=== PATIENT | male | born 1990 | race Caucasian/White ===

== ENCOUNTER 2024-10-12 08:58 | Inpatient (IN) | payer OTHER, SELFPAY ==
[2024-10-12] VITALS (26 sets, daily range): BP systolic 171–234; BP diastolic 83–173; PULSE 68–111; RESP 14–24; TEMP 36.3–36.9; O2SAT 87–97; BMI 68.2
--- NOTE | ~2024-10-12 | XR_ITS ---
EXAMINATION: XR CHEST CLINICAL INFORMATION: sob COMPARISON: None available. TECHNIQUE: 2 views of the chest were obtained. FINDINGS: The cardiac, hilar, and mediastinal contours are normal. There is opacity in the right middle lobe distribution. Lungs otherwise appear clear. There is no pneumothorax or pleural effusion. There is no focal osseous or soft tissue abnormality. XR/XR chest 2V IMPRESSION: Right middle lobe pneumonia suspected. Electronically signed by: Yadiel Grey MD 10/12/2024 09:59 AM EDT
--- NOTE | 2024-10-12 09:12 | ECG_ITS ---
Test Reason : sob Blood Pressure : */* mmHG Vent. Rate : 95 BPM Atrial Rate : 95 BPM P-R Int : 152 ms QRS Dur : 112 ms QT Int : 374 ms P-R-T Axes : 52 38 52 degrees QTcB Int : 469 ms Normal sinus rhythm Normal ECG No previous ECGs available Referred By: Generic ED Physician Electronically Signed By: ROSAS ONEIL MD
[2024-10-12 09:31] LABS: MANUAL DIFF FLAG NO
[2024-10-12 09:33] LABS: Basophils Absolute Auto 0.1 X10*3/uL (0.0-0.2); Basophils Percent Auto 0.5 % (0-2); Eosinophils Absolute Auto 0.2 X10*3/uL (0.0-0.4); Eosinophils Percent Auto 1.8 % (0-4); Hematocrit 43.1 % (42.0-52.0); Hemoglobin 14.1 g/dl (14.0-18.0); Imm Gran Abs Auto 0.05 X10*3/uL (0.00-0.03); Imm Gran Pct Auto 0.5 % (0.0-0.4); Lymphocytes Absolute Auto 2.4 X10*3/uL (1.2-4.9); Lymphocytes Percent Auto 22.5 % (20-40); Mean Corpuscular HGB Conc 32.7 g/dl (31.0-36.0); Mean Corpuscular Hemoglobin 28.9 pg (27.0-33.0); Mean Corpuscular Volume 88.3 fL (80.0-98.0); Mean Platelet Volume 9.1 fL (9.4-12.4); Monocytes Absolute Auto 0.8 X10*3/uL (0.1-1.2); Monocytes Percent Auto 7.1 % (2-11); Neutrophils Absolute Auto 7.2 x10*3/uL (2.0-8.3); Neutrophils Percent Auto 67.6 % (45-73); Platelet Count 277 X10*3/uL (160-400); Red Blood Count 4.88 X10*6/uL (4.60-5.80); Red Cell Distribution Width 13.7 % (11.0-16.0); White Blood Count 10.6 X10*3/uL (4.8-10.8)
[2024-10-12 09:41] LABS: INTERNATIONAL NORM RATIO 1.1 (0.9-1.1); Prothrombin Time 12.1 SEC (10.9-12.4)
--- NOTE | 2024-10-12 09:54 | ED.SOB ---
HPI - SOB/Dyspnea General Chief Complaint: Dyspnea Stated Complaint: Insomnia, no sleep 3 days, SOB Time Seen by Provider: 10/12/24 09:08 Source: patient, RN notes reviewed and old records reviewed Mode of arrival: ambulatory History of Present Illness ED Provider: Crissy Ch PA-C HPI Narrative: 34-year-old male with no significant past medical history presenting to the ED complaining of insomnia x3-4 days, states wakes up gasping for air. Reports SOB worse on exertion. Also reports bilateral LE edema worsening over the past year. Has not seen PCP in over 4 years, denies currently taking any medications. However admits to chronically elevated blood pressure. denies chest pain, abdominal pain, nausea/ vomiting, vision change or loss, anticoagulation use. + Cigarette smoker. Denies recent travel or history of clots. recently got over COVID 19 infection about 1 month ago Related Data Allergies Allergy/AdvReac Type Severity Reaction Status Date / Time No Known Allergies Allergy Verified 10/12/24 09:04 Review of Systems Review of Systems: Yes all other systems are reviewed and are negative Constitutional: Constitutional: Reports as per HPI [facility] Past Medical History Attestation statement: The following information was validated with the patient. Source: old records reviewed Social History Social History Advance Directives: No Advance Directives Information Provided: Yes Physical Exam Vital Signs: Vital Signs: Last Vital Signs Temp 98.4 F 10/12/24 09:01 Pulse 72 10/12/24 11:06 Resp 20 10/12/24 11:06 BP 194/106 H 10/12/24 11:55 Pulse Ox 91 L 10/12/24 11:06 O2 Del Method Nasal Cannula 10/12/24 11:06 O2 Flow Rate 2 10/12/24 11:06 BMI result Body Mass Index 68.2 Const: General: cooperative and no acute distress Nutritional Appearance: obese Orientation/consciousness: patient oriented x3 Limitations: no limitations HEENT: Head: Yes normal to inspection and Yes atraumatic Ears: hearing grossly normal bilaterally General nose exam: Normal external nose present Face and sinus: Yes normal facial exam Eyes: General: appearance normal, both eyes and all related structures EOM: EOMs intact bilaterally Neck: Neck: Yes normal visual inspection and Yes no meningeal signs Resp: Effort & Inspection: normal respiratory effort and no respiratory distress Auscultation: clear to auscultation bilaterally and diminished lung sounds bilateral in the lower lung garcia Cardio: Rate: regular rate and tachycardic Heart sounds: S1 normal heart sound present and S2 normal heart sound present GI: Inspection: Yes normal to inspection Palpation (GI): Soft to palpation, nontender, no guarding and not rigid Skin: Rashes: no rashes Wounds: no wounds Neuro: General: patient oriented x3, tone normal, moves all extremities, no meningeal signs, no focal motor deficits and CN's II-XI intact bilaterally Cranial nerves: Yes CN's II-XII intact bilaterally Cognition (Neuro): normal cognition Gait exam (Neuro): Normal gait present Extrem: Other: + bilateral LE nonpitting edema General: Yes normal to inspection Course Course Course Narrative: -0927-- patient is satting 90% on RA at rest -A1c 6.1. AST / ALT mildly elevated. -Initial troponin 45.2 > will obtain repeat. BNP 169 XR chest 2V IMPRESSION: Right middle lobe pneumonia suspected. > blood culture and empiric antibiotics ordered -1030-- patient exceeds the weight limit for our CT machine, unable to obtain CTA. Will obtain D-dimer to r/o PE - with his tachycardia, cigarette smoking, recent COVID-19 infection and hypoxia - although PNA & DEMARIO can also explain these sx -1139-- BP slightly improved to 192/123. PO labetalol ordered. > D-dimer negative, PE unlikely. Will discuss case with hospitalist - BP still very elevated will give IV hydralazine and re-evaluate. Medications Administered Generic Name Dose Route Start Last Admin Trade Name Freq PRN Reason Stop Dose Admin Azithromycin 500 mg/ Sodium 250 mls @ 125 mls/hr 10/12/24 10:29 10/12/24 11:34 Chloride IV 10/12/24 12:28 125 mls/hr ONCE ONE Administration Discontinued Medications Generic Name Dose Route Start Last Admin Trade Name Freq PRN Reason Stop Dose Admin Ceftriaxone Sodium 1 gm 10/12/24 10:29 10/12/24 11:34 Ceftriaxone Sodium 1 Gm Vial IVPUSH 10/12/24 10:30 1 gm ONCE ONE Administration Furosemide 20 mg 10/12/24 11:39 10/12/24 11:50 Furosemide 20 Mg/2 Ml Vial IVPUSH 10/12/24 11:40 20 mg ONCE ONE Administration Protocol Hydralazine HCl 10 mg 10/12/24 11:51 10/12/24 11:55 Hydralazine Hcl 20 Mg/Ml Vial IVPUSH 10/12/24 11:52 10 mg ONCE ONE Administration Protocol Labetalol HCl 10 mg 10/12/24 09:39 10/12/24 10:02 Labetalol Hcl 100 Mg/20 Ml Vial IVPUSH 10/12/24 09:40 10 mg ONCE ONE Administration Labetalol HCl 20 mg 10/12/24 10:26 10/12/24 10:29 Labetalol Hcl 100 Mg/20 Ml Vial IVPUSH 10/12/24 10:27 20 mg ONCE ONE Administration Labetalol HCl 100 mg 10/12/24 11:26 10/12/24 11:34 Labetalol Hcl 100 Mg Tablet PO 10/12/24 11:27 100 mg ONCE ONE Administration Protocol Medical Decision Making Medical Decision Making MDM Narrative: 34-year-old male with no significant past medical history presenting to the ED complaining of insomnia x3-4 days, states wakes up gasping for air. Reports SOB worse on exertion. On exam hypertensive 234/156 initially, tachycardic, 93% on RA, obese, diminished lung sounds bibasilarly, bilateral LE nonpitting edema. Concern for undiagnosed hypertension and sleep apnea. Concern for CHF vs PE vs hypertensive urgency/ emergency. Lower suspicion for ICH with headache x1 year. unlikely DVT or dissection Plan: EKG, labs, CXR, +/-CTA, blood pressure management, anticipated admission Please refer to course for remaining clinical decision making, interpretation of labs/imaging results, and discussions with consultants and/or family members. Differential Diagnosis Differential Diagnoses: The differential diagnosis associated with the presentation includes As above Admission/Observation Consideration of admission/observation: Escalation of care including admission/observation considered Consult Healthcare Provider Management of the patient was discussed with: Hospitalist Lab Data [facility] Lab Attestation statement: I reviewed the patient's lab results. 10/12/24 09:24 10/12/24 09:24 Labs: Lab Results 10/12/24 10/12/24 10/12/24 Range/Units 09:24 09:27 09:39 WBC 10.6 (4.8-10.8) X10*3/uL RBC 4.88 (4.60-5.80) X10*6/uL Hgb 14.1 (14.0-18.0) g/dl Hct 43.1 (42.0-52.0) % MCV 88.3 (80.0-98.0) fL MCH 28.9 (27.0-33.0) pg MCHC 32.7 (31.0-36.0) g/dl RDW 13.7 (11.0-16.0) % Plt Count 277 (160-400) X10*3/uL MPV 9.1 L (9.4-12.4) fL Immature Gran % (Auto) 0.5 H (0.0-0.4) % Neut % (Auto) 67.6 (45-73) % Lymph % (Auto) 22.5 (20-40) % Travis % (Auto) 7.1 (2-11) % Eos % (Auto) 1.8 (0-4) % Baso % (Auto) 0.5 (0-2) % Lymph # (Auto) 2.4 (1.2-4.9) X10*3/uL Travis # (Auto) 0.8 (0.1-1.2) X10*3/uL Eos # (Auto) 0.2 (0.0-0.4) X10*3/uL Baso # (Auto) 0.1 (0.0-0.2) X10*3/uL Abs Immat Gran (auto) 0.05 H (0.00-0.03) X10*3/uL Absolute Neuts (auto) 7.2 (2.0-8.3) x10*3/uL Absolute Nucleated RBC 0.000 (0.0-0.012) X10*3/uL Nucleated RBC % (auto) 0.0 (0.0-0.2) /100WBC PT 12.1 (10.9-12.4) SEC INR 1.1 (0.9-1.1) D-Dimer High Sensitivty 165 NG/ML Sodium 140 (135-145) mmol/L Potassium 4.7 (3.3-5.1) mmol/L Chloride 102 (96-108) mmol/L Carbon Dioxide 28 (22-29) mmol/L Anion Gap 15 (12-20) BUN 17 H (9-16) mg/dL Creatinine 0.96 (0.5-1.4) mg/dL Estim Creat Clear Calc 225.6 Estimated GFR > 60 Random Glucose 115 (60-115) mg/dL Estimat Average Glucose 128 mg/dL Hemoglobin A1c % 6.1 H (<6.0) % Calcium 9.4 (8.4-10.2) mg/dL Magnesium 2.0 (1.6-2.6) mg/dL Total Bilirubin 0.4 (0.0-1.0) mg/dL AST 49 H (5-37) U/L ALT 71 H (0-40) U/L Troponin I High Sens 45.2 H (<3.5-35.0) ng/L B-Natriuretic Peptide 169 H (<100) pg/mL Total Protein 7.7 (6.5-8.0) g/dL Albumin 3.7 (3.5-5.0) g/dL Influenza Type A (PCR) NEGATIVE (Negative) Influenza Type B (PCR) NEGATIVE (Negative) RSV RNA Qual (PCR) NEGATIVE (Negative) SARS-CoV-2 RNA (RT-PCR) NEGATIVE (Negative) Independent Interpretation I performed an independent interpretation of an: EKG ( my interpretation EKG normal sinus rhythm rate of 95. SD interval 152. QTC 469. No STEMI) Radiology Impression Discussion of test interpretation with radiology: I have reviewed the radiologist's reading. External Record Review External record reviewed: Inpatient record, Office record, Outpatient record, Prior outpatient labs, Prior outpatient radiology, Primary care record and Outside ED record Tests considered The following testing was considered but not selected: As above Prescription Management I considered prescription management with: Other Chronic Conditions Patient?s care impacted by: Hypertension ( undiagnosed) and Other Social Determinants Patient?s care significantly limited by Social Determinants of Health including: Other Social Determinant of Health Critical Care Time Critical Care Time Critical Care Time: Yes Total Critical Care Time: 60 Attestation: I have personally provided critical care time exclusive of time spent on separately billable procedures. Time includes review of lab data, radiology results, discussion with consultants, and monitoring for potential decompensation. Intervention performed as documented. Discharge Plan Discharge Clinical Impression: Pneumonia, Pedal edema, Exertional dyspnea, Hypoxia Patient Disposition: Admitted As Inpatient Print Language: Irish
[2024-10-12 09:57] LABS: B Type Natriuretic Peptide 169 pg/mL (<100); Troponin-I High Sensitivity 45.2 ng/L (<3.5-35.0)
[2024-10-12] MEDS: Labetalol HCL 100 MG/20 ML VIAL 10 MG IVPUSH (10:02)
[2024-10-12 10:21] LABS: Estimated Average Glucose 128 mg/dL; Hemoglobin A1C 160.8908 umol/L; Hemoglobin A1c % 6.1 % (<6.0); Total Hemoglobin (HGBA1C) 3740.7096 umol/L
[2024-10-12 10:22] LABS: Alanine Aminotransferase 71 U/L (0-40); Albumin Level 3.7 g/dL (3.5-5.0); Aspartate Amino Transferase 49 U/L (5-37); Bilirubin Total 0.4 mg/dL (0.0-1.0); Blood Urea Nitrogen 17 mg/dL (9-16); Calcium 9.4 mg/dL (8.4-10.2); Creatinine Clr Calc Pharmacy 225.6; Estimated Glomerular Filt Rate > 60; Glucose Random 115 mg/dL (60-115); Total Protein 7.7 g/dL (6.5-8.0)
[2024-10-12] MEDS: Labetalol HCL 100 MG/20 ML VIAL 20 MG IVPUSH (10:29)
[2024-10-12 10:34] LABS: Influenza A PCR NEGATIVE (Negative); Influenza B PCR NEGATIVE (Negative); Resp Syncy Virus RNA Qual PCR NEGATIVE (Negative); SARS COV2 PCR INHOUSE NEGATIVE (Negative)
[2024-10-12 10:47] LABS: Anion Gap 15 (12-20); Carbon Dioxide 28 mmol/L (22-29); Chloride 102 mmol/L (96-108); Potassium 4.7 mmol/L (3.3-5.1); Sodium 140 mmol/L (135-145)
[2024-10-12 11:13] LABS: D Dimer High Sensitivity 165 NG/ML
[2024-10-12] MEDS: Labetalol HCL 100 MG TABLET PO (11:34)
[2024-10-12] MEDS: cefTRIAXone sodium 1 GM VIAL IVPUSH (11:34)
[2024-10-12] MEDS: Azithromycin 500 MG in 0.9 % Sodium Chloride 250 ML 125 MG IV (11:34)
--- NOTE | 2024-10-12 11:39 | PC.NURSE ---
Confirmed w/ primary RN Carlota no lactic needed before administering abx.
[2024-10-12] MEDS: Furosemide 20 MG/2 ML VIAL IVPUSH (11:50)
[2024-10-12] MEDS: hydrALAZINE HCl 20 MG/ML VIAL 10 MG IVPUSH ×2 (11:55→18:17)
--- NOTE | 2024-10-12 12:18 | PC.NURSE ---
Ambulated out of bed to bathroom, voided urine. Reconnected to cardiac monitoring. Plan for admission due to hypoxia, Pneumonia, and hypertension.
[2024-10-12 12:46] LABS: Alkaline Phosphatase 71 U/L (39-117)
--- NOTE | 2024-10-12 13:04 | PHA.MEDREC ---
Addendum entered by Reza Martinez 10/12/24 13:14: reviewed Original Note: Pharmacy Consult ? Medication Reconciliation Pharmacy has completed the medication reconciliation. Spoke with patient and he is only taking Tylenol 500mg tabs taking 2-3 tabs daily as needed for pain and nothing else at this time.
[2024-10-12 13:18] LABS: Troponin-I High Sensitivity 43.1 ng/L (<3.5-35.0)
--- NOTE | 2024-10-12 13:50 | PC.NURSE ---
Patient ambulated out of bed for second time to void urine. ACTUARY at bedside assessing the patient. Reviewed administered medications with ACTUARY. To be admitted to Med/Tele pending bed assignment.
--- NOTE | 2024-10-12 14:08 | P.HPHOSP_ITS ---
History of Present Illness Date of Service: 10/12/24 <Irma Jason DNP - Last Filed: 10/12/24 16:14> Attending physician on admission: Yves Myers <Irma Jason DNP - Last Filed: 10/12/24 16:14> Chief Complaint: Pneumonia, shortness of breath, edema <Irma Jason DNP - Last Filed: 10/12/24 16:14> 34-year-old with morbid obesity and no significant past medical history presented to the ED after reporting insomnia for 3-4 days, waking up gasping for air, and shortness of breast that is worse with exertion. He also reports some bilateral lower extremity edema that has been getting worse over the past year. 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 He was unable to follow-up with a primary care doctor due to lack of insurance. He does report some elevated blood pressure history is in the past, also reports symptoms of sleep apnea occurring at home. Patient also reports that he has severe reflux that wakes him up on occasion at night. In the ED his blood pressure was significantly elevated to 206/129 max, he received a total of labetalol 130 mg, Lasix 20 mg and hydralazine 10 mg. His blood pressures are slightly improved. His D-dimer was negative, his chest x- ray demonstrated infiltrate in the right middle lobe possible pneumonia. No leukocytosis, no anemia, hemoglobin A1c noted to be 6.1, his troponins were 45.2, and 43.1 respectively. ALT and AST is slightly elevated at 49/71, his BNP was 169. Coagulation studies within normal limits. Negative viral panel, and blood cultures are pending. He received a dose of Zithromax and ceftriaxone in the ED. initially required oxygen for a saturation of 89-92% now on room air. < Irma Jason DNP - Last Filed: 10/12/24 16:14> Review of Systems 2 Review of Systems: Patient denies any shortness of breath at present, denies any chest pain, denies any abdominal pain or discomfort. He denies any headache dizziness or any other concerning symptoms. <Irma Jason DNP - Last Filed: 10/12/24 16:14> [facility] Social History: Social History (Updated 10/12/24 @ 14:41 by Irma Jason DNP) Substance Use Type: Marijuana Substance Use Type Other:: Daily marijuana use at HS Advance Directives: No Advance Directives Information Provided: Yes <Irma Jason DNP - Last Filed: 10/12/24 16:14> Meds Allergies/Adverse reactions: Allergies Allergy/AdvReac Type Severity Reaction Status Date / Time No Known Allergies Allergy Verified 10/12/24 09:04 <Irma Jason DNP - Last Filed: 10/12/24 16:14> Home medications: Home Medications ?Medication ?Instructions ?Recorded ?Confirmed ?Last Taken ?Type No Known Home Meds 10/12/24 10/12/24 Unknown History acetaminophen 500 mg tablet 1,500 mg PO DAILY PRN Pain 10/12/24 10/12/24 10/09/24 History <Irma Jason DNP - Last Filed: 10/12/24 16:14> Physical Exam 2 Vital Signs and Narrative: Vital Signs: Last Vital Signs Temp 98.4 F 10/12/24 09:01 Pulse 81 10/12/24 12:10 Resp 20 10/12/24 12:10 BP 173/83 H 10/12/24 12:10 Pulse Ox 96 10/12/24 12:10 O2 Del Method Nasal Cannula 10/12/24 12:10 O2 Flow Rate 2 10/12/24 12:10 BMI result Body Mass Index 68.2 <Irma Jason DNP - Last Filed: 10/12/24 16:14> Alert and oriented X3, able to give good history. Neuro: CN II-X11 intact, no deficits, visual acuity intact EYES: PERRLA, EOM intact ENT: hearing intact, uvula midline, lips moist, nares patent no epistaxis Cardiac: S1 S2 RRR, trace edema in Lower ext, mild redness, no warmth Pulmonary: lungs clear to auscultation, diminished in bases, No increased WOB. Abdominal: BS diminished in all 4 quadrants due to boody habitus, no guarding, tenderness, rebounding, Morbidly obese abdomen MSK: Strength 5/5 upper and lower extremities, ambulates with steady gait. : Deferred Extremities: Trace edema in lower extremities Psych: mood stable, judgment and insight good Skin: Warm and dry, Intact <Irma Jason DNP - Last Filed: 10/12/24 16:14> Results Labs CBC and Chem 7: 10/12/24 09:24 10/12/24 09:24 <Irma Jason DNP - Last Filed: 10/12/24 16:14> Labs: Laboratory Results - last 24 hr 10/12/24 10/12/24 10/12/24 09:24 09:27 09:39 MCV 88.3 MCH 28.9 MCHC 32.7 RDW 13.7 Plt Count 277 MPV 9.1 L Immature Gran % (Auto) 0.5 H Neut % (Auto) 67.6 Lymph % (Auto) 22.5 Reeves % (Auto) 7.1 Eos % (Auto) 1.8 Baso % (Auto) 0.5 Lymph # (Auto) 2.4 Reeves # (Auto) 0.8 Eos # (Auto) 0.2 Baso # (Auto) 0.1 Abs Immat Gran (auto) 0.05 H Absolute Neuts (auto) 7.2 Absolute Nucleated RBC 0.000 Nucleated RBC % (auto) 0.0 PT 12.1 INR 1.1 D-Dimer High Sensitivty 165 Anion Gap 15 Estim Creat Clear Calc 225.6 Estimated GFR > 60 Random Glucose 115 Estimat Average Glucose 128 Hemoglobin A1c % 6.1 H Calcium 9.4 Magnesium 2.0 Total Bilirubin 0.4 AST 49 H ALT 71 H Alkaline Phosphatase 71 B-Natriuretic Peptide 169 H Total Protein 7.7 Albumin 3.7 Influenza Type A (PCR) NEGATIVE Influenza Type B (PCR) NEGATIVE RSV RNA Qual (PCR) NEGATIVE SARS-CoV-2 RNA (RT-PCR) NEGATIVE <Irma Jason DNP - Last Filed: 10/12/24 16:14> Imaging Radiologist's Impressions: Impressions Chest X-Ray 10/12/24 09:12 IMPRESSION: Right middle lobe pneumonia suspected. Electronically signed by: Yadiel Grey MD 10/12/2024 09:59 AM EDT <Irma Jason DNP - Last Filed: 10/12/24 16:14> Assessment and Plan (1) Uncontrolled hypertension: Status: Acute <Irma Jason DNP - Last Filed: 10/12/24 16:14> 34-year-old morbidly obese male who presents to the ED with shortness of breath and uncontrolled hypertension. Found to have a right middle lobe pneumonia. Right middle lobe pneumonia Continue with ceftriaxone and Zithromax. P.r.n. updrazain Now on room air, continue to monitor oxygen saturations Follow labs, he has no leukocytosis, blood cultures are pending Oxygen as needed. Uncontrolled hypertension Received labetalol 130 mg in the ED along with hydralazine 10 mg. Start amlodipine 2.5 mg b.i.d. Hydralazine 10 mg IV push q.6 hours if systolic blood pressure greater than 170 Low-sodium diet Probable CHF Received Lasix in the ED, we will continue Lasix daily Obtain JACKIE complete with contrast BNP 169 Follow labs His EKG was within normal limits Attending Dr. Yves Myers CODE status FULL CODE DVT PROPHY Lovenox addm: This patient is seen and examined with APC. Lab imaging, EKG reviewed. Patient said he had COVID a month ago and since then he is getting intermittent shortness of breath which is progressively getting worse and also having trouble sleeping from few days, in addition he also has leg swelling. He says he has elevated blood pressure from at least 1 year but never went to any doctor . Lab letter long: Found to have possible pneumonia on chest x-ray and elevated troponin, EKG seems NSR, elevated BNP, leg edema. Patient admitted for right middle lobe pneumonia, uncontrolled hypertension, possible CHF etiology unclear echo pending: Currently patient is started on IV antibiotics, IV Lasix, I&O monitoring, renal function electrolyte monitoring, echo, cardiology evaluation. <Irma Jason DNP - Last Filed: 10/12/24 16:14> 34-year-old morbidly obese male who presents to the ED with shortness of breath and uncontrolled hypertension. Found to have a right middle lobe pneumonia. Right middle lobe pneumonia Continue with ceftriaxone and Zithromax. P.r.n. tony Now on room air, continue to monitor oxygen saturations Follow labs, he has no leukocytosis, blood cultures are pending Oxygen as needed. Uncontrolled hypertension Received labetalol 130 mg in the ED along with hydralazine 10 mg. Start amlodipine 2.5 mg b.i.d. Hydralazine 10 mg IV push q.6 hours if systolic blood pressure greater than 170 Low-sodium diet Volume overload Received Lasix in the ED, we will continue Lasix daily Obtain JACKIE complete with contrast BNP 169 Follow labs His EKG was within normal limits Attending Dr. Yves Myers CODE status FULL CODE DVT YESENIA Mi addm: This patient is seen and examined with APC. Lab imaging, EKG reviewed. Patient said he had COVID a month ago and since then he is getting intermittent shortness of breath which is progressively getting worse and also having trouble sleeping from few days, in addition he also has leg swelling. He says he has elevated blood pressure from at least 1 year but never went to any doctor . Lab letter long: Found to have possible pneumonia on chest x-ray and elevated troponin, EKG seems NSR, elevated BNP, leg edema. Patient admitted for right middle lobe pneumonia, uncontrolled hypertension, possible CHF etiology unclear echo pending: Currently patient is started on IV antibiotics, IV Lasix, I&O monitoring, renal function electrolyte monitoring, echo, cardiology evaluation.might also have component of sleep apnea ( snording ,walking up in night,insomnia). <Yves Myers MD - Last Filed: 10/12/24 16:12> Quality Stroke Does the patient have a stroke diagnosis?: No <Irma Jason DNP - Last Filed: 10/12/24 16:14> VTE Prior VTE?: No <Irma Jason DNP - Last Filed: 10/12/24 16:14> VTE Risk Level:: Medical - moderate - high <Irma Jason DNP - Last Filed: 10/12/24 16:14> VTE Device Contraindication: Treatment Not Indicated <Irma Jason DNP - Last Filed: 10/12/24 16:14> VTE Drug Contraindication: N/A - Med Ordered <Irma Jason DNP - Last Filed: 10/12/24 16:14>
[2024-10-12] MEDS: Enoxaparin Sodium 40 MG/0.4 ML SYRINGE SUBCUT (16:24)
[2024-10-12] MEDS: Nicotine 14 MG PATCH.TD24 TRANSDERMA (16:25)
[2024-10-12] MEDS: Nicotine Polacrilex 2 MG GUM BUCCAL (16:27)
[2024-10-12] MEDS: 0.9 % Sodium Chloride Flush 3 ML SYRINGE IVFLUSH ×2 (16:28→20:49)
[2024-10-12] MEDS: amLODIPine Besylate 5 MG TABLET PO (20:49)
[2024-10-12] MEDS: Melatonin 3 MG TABLET 6 MG PO (22:26)
[2024-10-13] VITALS (9 sets, daily range): BP systolic 106–182; BP diastolic 76–104; PULSE 83–94; RESP 15–18; TEMP 36.2–36.7; O2SAT 92–100
[2024-10-13] MEDS: hydrALAZINE HCl 20 MG/ML VIAL 10 MG IVPUSH (03:43)
--- NOTE | 2024-10-13 05:05 | PM.EVENT ---
Event Note Date of Service: 10/13/24 Event Note: Nurse reported 3.3s pause. Patient is not on beta-zayra. Appreciate cardiology Time Spent With Patient Time: Total time managing care of this patient today ____ minutes.
[2024-10-13] MEDS: Omeprazole 20 MG CAPSULE.DR PO (05:27)
[2024-10-13 06:38] LABS: MANUAL DIFF FLAG NO
--- NOTE | 2024-10-13 07:00 | CA_ITS ---
Transthoracic Echocardiogram Patient (Last, First, Middle): Yadiel Ayers M Gender: Male Date of : 1990 Age: 34 Procedure Date: 10/13/2024 Procedure Type: Transthoracic Echocardiogram [place] [facility] [place]: 187.96 cm Weight: 240.86 kg BSA: 3.29 m2 Heart Rate: 70 bpm BP: 178 / 113 mmHg Stenciling Machine Tender: MICHAEL Referring MD: Irma Jason DNP Campaign Coordinator: Scotty Herrera MD Symptoms: Uncontrolled HTN Study Quality: Technically Difficult ECG Rhythm: Sinus Conclusions: - 1. Technically limited study due to body habitus 2. [id number] LV systolic dysfunction with severe left ventricular hypertrophy with pseudonormal filling pattern 3. Limited visualization of cardiac valves with normal cardiac valvular Doppler Findings Procedure Information Contrast agent, definity, is being given per protocol without apparent complications. The quality of the study was technically difficult. The study quality is limited by patients body habitus. Left Ventricle Normal left ventricular cavity size. There is severely increased left ventricular wall thickness. The left ventricular systolic function is mild to moderately decreased. The visually estimated ejection fraction is between 40-45%. Spectral Doppler is indicative of a pseudonormal filling pattern. Right Ventricle The right ventricle was not well visualized. Atria The left atrium was not well visualized. Interatrial shunt cannot be excluded. The right atrium was not well visualized. Aortic Valve The aortic valve was not well visualized. There is no aortic valve stenosis. There is no aortic valve regurgitation. Mitral Valve The mitral valve was not well visualized. There is no mitral valve regurgitation. There is no mitral valve stenosis. Pulmonic Valve The pulmonic valve was not well visualized. Tricuspid Valve The tricuspid valve was not well visualized. Tricuspid regurgitation envelope is inadequate for calculation of right ventricular systolic pressure. Great Vessels The aorta was not well visualized. The pulmonary artery was not well visualized. Venous The inferior vena cava was not well visualized. Pericardium/Pleural The pericardium was not well visualized. Prior Study Comparison No prior study available for comparison. Measurements 2D Linear Measurements IVSd: 1.69 0.6-0.9/0.6-1.0 cm LVIDd: 6.77 3.9-5.3/4.2-5.9 cm LVIDd Index: 2.06 2.4-3.2/2.2-3.1 cm/m2 LVIDs: 5.47 2.0-3.6 cm LVPWd: 1.73 0.7-1.1 cm LA Diam: 4.90 2.7-3.8/3.0-4.0 cm LAIDs Index: 1.49 1.5-2.3 cm/m2 LV Mass: 777.71 67-162/88-224 g LV Mass Index: 236.39 43-95/49-115 g/m2 LVOT Diam: 2.70 3.0+(-)1.3 cm 2D Systolic Function EF 4C: 47.20 >55% EF 2C: 40.20 >55% EF BiP: 44.20 >55% Mitral Valve MV Pk E: 0.95 MV PK A: 0.92 MV Decel Time: 205.00 E/A: 1.00 E'Medial: 5.44 E/E' Med: 17.50 PHT: 60.00 MVA PHT: 3.67 Decel [place]: 4.64 Aortic Valve AoV Pk Darrin: 1.42 AoV Mn Darrin: 1.00 AoV VTI: 0.26 AoV Pk Grad: 8.00 Aov Mn Grad: 5.00 JAI Cont.VTI: 4.21 LVOT LVOT Pk Darrin: 1.09 LVOT Mn Darrin: 0.78 LVOT VTI: 0.19 LVOT Pk Grad: 5.00 LVOT Mn Grad: 3.00 LVOT Diam: 2.70 LVOT Area: 5.73 Diastolic Function MV Pk E: 0.95 MV Pk A: 0.92 E/A: 1.00 E'Medial: 5.44 E/E' Med: 17.50 Great Vessels Aorta Sinus of Valsalva: 3.60 2.0-3.5 cm Ao Asc: 3.60 2.1-3.4 cm Pulmonary Valve PV Pk Darrin: 1.10 Peak PV Grad: 5.00 Updated in Other Vendor System with Status of Final Scotty Herrera MD electronically signed on 10/13/2024 1:29:35 PM with status of Final
[2024-10-13 07:04] LABS: Anion Gap 13 (12-20); Blood Urea Nitrogen 14 mg/dL (9-16); Calcium 8.7 mg/dL (8.4-10.2); Carbon Dioxide 27 mmol/L (22-29); Chloride 103 mmol/L (96-108); Creatinine Clr Calc Pharmacy 260.9; Estimated Glomerular Filt Rate > 60; Glucose Random 111 mg/dL (60-115); Sodium 139 mmol/L (135-145)
[2024-10-13 07:06] LABS: Basophils Percent Auto 0.4 % (0-2); Eosinophils Absolute Auto 0.3 X10*3/uL (0.0-0.4); Eosinophils Percent Auto 2.5 % (0-4); Hematocrit 39.1 % (42.0-52.0); Hemoglobin 13.1 g/dl (14.0-18.0); Imm Gran Abs Auto 0.03 X10*3/uL (0.00-0.03); Imm Gran Pct Auto 0.3 % (0.0-0.4); Lymphocytes Percent Auto 19.3 % (20-40); Mean Corpuscular HGB Conc 33.5 g/dl (31.0-36.0); Mean Corpuscular Hemoglobin 29.3 pg (27.0-33.0); Mean Corpuscular Volume 87.5 fL (80.0-98.0); Mean Platelet Volume 9.2 fL (9.4-12.4); Monocytes Absolute Auto 0.8 X10*3/uL (0.1-1.2); Monocytes Percent Auto 7.9 % (2-11); Neutrophils Absolute Auto 7.1 x10*3/uL (2.0-8.3); Neutrophils Percent Auto 69.6 % (45-73); Platelet Count 243 X10*3/uL (160-400); Red Blood Count 4.47 X10*6/uL (4.60-5.80); Red Cell Distribution Width 14.2 % (11.0-16.0); White Blood Count 10.2 X10*3/uL (4.8-10.8)
[2024-10-13] MEDS: amLODIPine Besylate 5 MG TABLET PO ×2 (09:39→19:42)
[2024-10-13] MEDS: Furosemide 20 MG/2 ML VIAL IVPUSH (09:40)
[2024-10-13] MEDS: Nicotine 14 MG PATCH.TD24 TRANSDERMA (09:40)
[2024-10-13] MEDS: 0.9 % Sodium Chloride Flush 3 ML SYRINGE IVFLUSH ×2 (09:42→19:46)
--- NOTE | 2024-10-13 11:36 | MHC.CM.PN ---
Pt lives with his , he does not have home health services. PCP is Dr Deluna, in [place], his first appt. will be 10/27/24. HCP will be his , Koki, form to be completed here and added to chart. zpt does not have any DME, and for transport home, he has his car here. DCP: home, self care, CM to follow for DC needs.
[2024-10-13] MEDS: cefTRIAXone sodium 1 GM VIAL IVPUSH (11:55)
[2024-10-13] MEDS: Azithromycin 500 MG in 0.9 % Sodium Chloride 250 ML 125 MG IV (11:55)
[2024-10-13] MEDS: Spironolactone 25 MG TABLET PO (14:30)
[2024-10-13] MEDS: Sacubitril/Valsartan 24/26 1 TAB TABLET PO ×2 (14:30→19:42)
[2024-10-13] MEDS: Enoxaparin Sodium 40 MG/0.4 ML SYRINGE SUBCUT (14:30)
[2024-10-13] MEDS: Furosemide 200 MG in 0.9 % Sodium Chloride 80 ML IVCONT (14:31)
--- NOTE | 2024-10-13 15:28 | P.CONCA_ITS ---
History of Present Illness History of Present Illness Date of Service: 10/13/24 Requesting physician: Yves Myers Chief complaint: htn urgency pneumonia Narrative: I was consulted to see Yadiel in cardiology consultation today for shortness of breath and markedly elevated blood pressure. Patient is a 34-year-old male who is morbidly obese, history obtained in the presence of was present in the room. Patient said he has not seen a physician for many years. 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 Over the last year he started noticing increasing leg swelling and over the last 4 months he has started noticing orthopnea. He said he came to the emergency room because he could not sleep for the last 4 days cause he was not able to breathe. He therefore decided come to the emergency room was noted to be in hypertensive urgency with markedly elevated blood pressure and also was very short of breath. He was suspected to possibly have a pneumonia and was admitted. His troponins are minimally elevated. BNP was mildly elevated 169. 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 He however said that his overall not feeling well and therefore decided come to the emergency room. He said he avoids to see doctors as he gets anxious and has trouble following directions. He has echocardiogram done at bedside shows [id number] LV systolic dysfunction with severe LVH with diastolic dysfunction. Findings suggestive of hypertensive heart disease. Patient remains hypertensive. Patient denies any prolonged palpitation irregular heartbeat. Denies any exertional chest pain but appears to have significant short of breath and not able to complete sentences. Review of Systems 2 Constitutional: Constitutional: Reports snoring and Reports stops breathing during sleep Eyes: Eyes: Reports no additional eye complaints ENT: Reports system reviewed and no additional complaints, except as documented Cardiovascular: Cardiovascular: Denies chest pain, Reports leg edema, Denies lightheadedness, Denies Loss of Consciousness, Denies palpitations, Reports dyspnea on exertion and Reports orthopnea Respiratory: Respiratory: Reports no additional respiratory complaints, Reports dyspnea on exertion and Reports snoring Gastrointestinal: Gastrointestinal: Reports no additional gastrointestinal complaints Genitourinary: Genitourinary: Reports no additional male genitourinary complaints Musculoskeletal: Musculoskeletal: Reports no additional musculoskeletal complaints Integumentary/Breasts: Skin/Breast: Reports system reviewed and no additional complaints, except as docu Neurologic: Reports system reviewed and no additional complaints, except as documented Psychiatric: Psychiatric: Reports no additional psychiatric complaints Endocrine: Endocrine: Denies palpitations Hematologic/Lymphatic: Hematologic/Lymphatic: Reports no additional hematologic/lymphatic complaints [facility] Social History Social History Household Members: Spouse Housing: Apartment Do you presently have visiting nurse or other home services: No Alcohol intake: current Alcohol intake frequency: holidays/special occasions only Patient Tobacco Use Status: Current everyday Tobacco user Substance Use Type: Marijuana service: No Meds Allergies Allergy/AdvReac Type Severity Reaction Status Date / Time No Known Allergies Allergy Verified 10/12/24 09:04 Active Medications: Current Medications Acetaminophen (Acetaminophen 325 Mg Tablet) 650 mg PO Q6H PRN PRN Reason: Pain, Mild 1-3,fever,headache Albuterol/Ipratropium (Albuterol/Iprat 2.5/0.5mg 3 Ml Ampul.Neb) 3 ml INHALE Q4H PRN PRN Reason: Shortness of Breath/Wheezing Amlodipine Besylate (Amlodipine Besylate 5 Mg Tablet) 5 mg PO BID [facility]; Protocol Last Admin: 10/13/24 09:39 Dose: 5 mg Calcium Carbonate (Calcium Carbonate 750 Mg Tab.Chew) 750 mg PO Q4H PRN PRN Reason: Heartburn Ceftriaxone Sodium (Ceftriaxone Sodium 1 Gm Vial) 1 gm IVPUSH Q24H [facility] Last Admin: 10/13/24 11:55 Dose: 1 gm Enoxaparin Sodium (Enoxaparin Sodium 40 Mg/0.4 Ml Syringe) 40 mg SUBCUT Q24H [facility] Last Admin: 10/13/24 14:30 Dose: 40 mg Hydralazine HCl (Hydralazine Hcl 20 Mg/Ml Vial) 10 mg IVPUSH Q6H PRN; Protocol PRN Reason: Hypertension SBP >170 Last Admin: 10/13/24 03:43 Dose: 10 mg Azithromycin 500 mg/ Sodium (Chloride) 250 mls @ 125 mls/hr IV Q24H [facility] Last Infusion: 10/13/24 14:24 Dose: Infused Furosemide 200 mg/ Sodium (Chloride) 100 mls @ 1 mls/hr IVCONT .Q24H [facility] Last Admin: 10/13/24 14:31 Dose: 2 mg/hr, 1 mls/hr Magnesium Hydroxide (Milk Of Magnesia 30 Ml Oral.Susp) 30 ml PO DAILY PRN PRN Reason: Constipation Melatonin (Melatonin 3 Mg Tablet) 6 mg PO BEDTIME PRN PRN Reason: Insomnia Last Admin: 10/12/24 22:26 Dose: 6 mg Nicotine (Nicotine 14 Mg Patch.Td24) 14 mg TRANSDERMA DAILY [facility] Last Admin: 10/13/24 09:40 Dose: 14 mg Nicotine Polacrilex (Nicotine Polacrilex 2 Mg Gum) 2 mg BUCCAL Q2H PRN PRN Reason: Nicotine Cravings Last Admin: 10/12/24 16:27 Dose: 2 mg Omeprazole (Omeprazole 20 Mg Capsule.Dr) 20 mg PO DAILY@0630 [facility] Last Admin: 10/13/24 05:27 Dose: 20 mg Ondansetron HCl (Ondansetron Hcl 4 Mg/2 Ml Vial) 4 mg IVPUSH Q8H PRN PRN Reason: Nausea and Vomiting Sacubitril/Valsartan (Sacubitril/Valsartan 1 Tab Tablet) 1 tab PO BID [facility]; Protocol Last Admin: 10/13/24 14:30 Dose: 1 tab Sodium Chloride (0.9 % Sodium Chloride Flush 3 Ml Syringe) [facility] Last Admin: 10/13/24 09:42 Dose: 3 ml Spironolactone (Spironolactone 25 Mg Tablet) 25 mg PO DAILY [facility]; Protocol Last Admin: 10/13/24 14:30 Dose: 25 mg Home Medications ?Medication ?Instructions ?Recorded ?Confirmed ?Last Taken ?Type No Known Home Meds 10/12/24 10/12/24 Unknown History acetaminophen 500 mg tablet 1,500 mg PO DAILY PRN Pain 10/12/24 10/12/24 10/09/24 History Physical Exam 2 Vital Signs: Vital Signs: Last Vital Signs Temp 97.8 F 10/13/24 11:39 Pulse 83 10/13/24 11:39 Resp 16 10/13/24 11:39 BP 170/90 H 10/13/24 14:31 Pulse Ox 100 10/13/24 11:39 O2 Del Method Room Air 10/13/24 11:39 O2 Flow Rate 2 10/12/24 12:10 BMI result Body Mass Index 68.2 Const: General: cooperative, alert, awake and in distress mild and respiratory Nutritional Appearance: obese morbidly obese Orientation/consciousness: p atient oriented x3 Limitations: no limitations HEENT: Head: Yes normocephalic and Yes atraumatic Neck: Neck: Yes trachea midline, Yes supple and Yes JVD Resp: Effort & Inspection: normal respiratory effort Auscultation: clear to auscultation bilaterally Cardio: Jugular venous distension: JVD Rate: regular rate Rhythm: r egular rhythm Heart sounds: S1 normal heart sound present, S2 normal heart sound present, no click, no gallops, no murmurs and no rubs GI: Inspection: Yes distended Auscultation: normal bowel sounds Skin: General skin exam: no rashes or lesions noted Neuro: General: patient oriented x3 and no focal motor deficits Extrem: General: No clubbing, No cyanosis and Yes edema Psych: Appearance: grossly normal Affect: Anxious affect present Objective Labs and Meds 10/13/24 06:01 10/13/24 06:01 Lab results: Laboratory Results - last 24 hr 10/13/24 06:01 WBC 10.2 RBC 4.47 L Hgb 13.1 L Hct 39.1 L MCV 87.5 MCH 29.3 MCHC 33.5 RDW 14.2 Plt Count 243 MPV 9.2 L Immature Gran % (Auto) 0.3 Neut % (Auto) 69.6 Lymph % (Auto) 19.3 L [place] % (Auto) 7.9 Eos % (Auto) 2.5 Baso % (Auto) 0.4 Lymph # (Auto) 2.0 [place] # (Auto) 0.8 Eos # (Auto) 0.3 Baso # (Auto) 0.0 Abs Immat Gran (auto) 0.03 Absolute Neuts (auto) 7.1 Absolute Nucleated RBC 0.000 Nucleated RBC % (auto) 0.0 Sodium 139 Potassium 4.0 Chloride 103 Carbon Dioxide 27 Anion Gap 13 BUN 14 Creatinine 0.83 Estim Creat Clear Calc 260.9 Estimated GFR > 60 Random Glucose 111 Calcium 8.7 D Assessment and Plan (1) Acute decompensated heart failure: Status: Acute Patient admitted with findings most suggestive of congestive heart failure. Not sure if he has ongoing pneumonia as well. He has significantly elevated blood pressure which has been untreated for some time with morbid obesity and underlying strong likelihood of obstructive sleep apnea as cause for his hypertension which is responsible for his LV systolic dysfunction hypertensive heart disease. Clinically he is significantly fluid overloaded. I would start him on IV diuresis with Lasix drip. Strict intake and output chart needs to be pursued. Continue follow electrolytes and renal function closely. His blood pressure also needs aggressive management and would solve neurohormonal modulation with Entresto 24-26 mg b.i.d. as well as Aldactone 25 mg daily and monitor his blood pressure closely. Will also do overnight oximetry as well as in-house preliminary sleep study and may benefit from CPAP therapy inpatient. Discussed about management. He is very anxious and does not want to stay in the hospital for long period time. I have discussed that this is a very serious condition and this needs to be treated in house initially and then we will monitor him as outpatient. He agreed to stay but he is very anxious and may benefit from antianxiety medications. Will follow with you Procedures Date of Service Date of Service: 10/13/24
--- NOTE | 2024-10-13 17:04 | HO.PM.IMPN ---
Subjective Subjective Date of Service: 10/13/24 Interval History: chf ,uncontrolled htn,pneumonia Review of Systems Shortness of breaths somewhat improving, has leg edema Denies any chest pain Review of Systems: Yes all other systems are reviewed and are negative Physical Exam Vital Signs: Vital Signs: Last Vital Signs Temp 97.9 F 10/13/24 15:28 Pulse 84 10/13/24 15:28 Resp 17 10/13/24 15:28 BP 164/100 H 10/13/24 15:28 Pulse Ox 95 10/13/24 15:28 O2 Del Method Room Air 10/13/24 15:28 O2 Flow Rate 2 10/12/24 12:10 BMI result Body Mass Index 68.2 Appearance: Alert.? Oriented X3.? . cvs: rrr, [id number] jvd res: air entry improving abd: no rebound or guarding ,nt, bs present. ext pulses present , no cyanosis ,1+ edema. neuro: axo3 , nonfocal. Objective Data Active Medications Acetaminophen (Acetaminophen 325 Mg Tablet) 650 mg PO Q6H PRN PRN Reason: Pain, Mild 1-3,fever,headache Albuterol/Ipratropium (Albuterol/Iprat 2.5/0.5mg 3 Ml Ampul.Neb) 3 ml INHALE Q4H PRN PRN Reason: Shortness of Breath/Wheezing Amlodipine Besylate (Amlodipine Besylate 5 Mg Tablet) 5 mg PO BID [facility]; Protocol Last Admin: 10/13/24 09:39 Dose: 5 mg Documented By: JAMIE Calcium Carbonate (Calcium Carbonate 750 Mg Tab.Chew) 750 mg PO Q4H PRN PRN Reason: Heartburn Ceftriaxone Sodium (Ceftriaxone Sodium 1 Gm Vial) 1 gm IVPUSH Q24H [facility] Last Admin: 10/13/24 11:55 Dose: 1 gm Documented By: AJMIE Enoxaparin Sodium (Enoxaparin Sodium 40 Mg/0.4 Ml Syringe) 40 mg SUBCUT Q24H [facility] Last Admin: 10/13/24 14:30 Dose: 40 mg Documented By: JAMIE Hydralazine HCl (Hydralazine Hcl 20 Mg/Ml Vial) 10 mg IVPUSH Q6H PRN; Protocol PRN Reason: Hypertension SBP >170 Last Admin: 10/13/24 03:43 Dose: 10 mg Documented By: JOAO Azithromycin 500 mg/ Sodium (Chloride) 250 mls @ 125 mls/hr IV Q24H [facility] Last Infusion: 10/13/24 14:24 Dose: Infused Documented By: JAMIE Furosemide 200 mg/ Sodium (Chloride) 100 mls @ 1 mls/hr IVCONT .Q24H [facility] Last Admin: 10/13/24 14:31 Dose: 2 mg/hr, 1 mls/hr Documented By: JAMIE Magnesium Hydroxide (Milk Of Magnesia 30 Ml Oral.Susp) 30 ml PO DAILY PRN PRN Reason: Constipation Melatonin (Melatonin 3 Mg Tablet) 6 mg PO BEDTIME PRN PRN Reason: Insomnia Last Admin: 10/12/24 22:26 Dose: 6 mg Documented By: SOSA Nicotine (Nicotine 14 Mg Patch.Td24) 14 mg TRANSDERMA DAILY [facility] Last Admin: 10/13/24 09:40 Dose: 14 mg Documented By: JAMIE Nicotine Polacrilex (Nicotine Polacrilex 2 Mg Gum) 2 mg BUCCAL Q2H PRN PRN Reason: Nicotine Cravings Last Admin: 10/12/24 16:27 Dose: 2 mg Documented By: DO Omeprazole (Omeprazole 20 Mg Capsule.Dr) 20 mg PO DAILY@0630 [facility] Last Admin: 10/13/24 05:27 Dose: 20 mg Documented By: JOAO Ondansetron HCl (Ondansetron Hcl 4 Mg/2 Ml Vial) 4 mg IVPUSH Q8H PRN PRN Reason: Nausea and Vomiting Sacubitril/Valsartan (Sacubitril/Valsartan 1 Tab Tablet) 1 tab PO BID [facility]; Protocol Last Admin: 10/13/24 14:30 Dose: 1 tab Documented By: JAMIE Sodium Chloride (0.9 % Sodium Chloride Flush 3 Ml Syringe) 3 ml IVFLUSH QSHIFT [facility] Last Admin: 10/13/24 09:42 Dose: 3 ml Documented By: JAMIE Spironolactone (Spironolactone 25 Mg Tablet) 25 mg PO DAILY [facility]; Protocol Last Admin: 10/13/24 14:30 Dose: 25 mg Documented By: JAMIE Labs 10/13/24 06:01 10/13/24 06:01 Labs: Laboratory Results - last 24 hr 10/13/24 06:01 MCV 87.5 MCH 29.3 MCHC 33.5 RDW 14.2 Plt Count 243 MPV 9.2 L Immature Gran % (Auto) 0.3 Neut % (Auto) 69.6 Lymph % (Auto) 19.3 L [place] % (Auto) 7.9 Eos % (Auto) 2.5 Baso % (Auto) 0.4 Lymph # (Auto) 2.0 [place] # (Auto) 0.8 Eos # (Auto) 0.3 Baso # (Auto) 0.0 Abs Immat Gran (auto) 0.03 Absolute Neuts (auto) 7.1 Absolute Nucleated RBC 0.000 Nucleated RBC % (auto) 0.0 Anion Gap 13 Estim Creat Clear Calc 260.9 Estimated GFR > 60 Random Glucose 111 Calcium 8.7 D Microbiology Microbiology Results: Microbiology 10/12/24 11:16 Blood Culture - Preliminary Blood - Venous No growth after 24 hours. 10/12/24 11:18 Blood Culture - Preliminary Blood - Venous No growth after 24 hours. Assessment and Plan (1) Acute decompensated heart failure: Status: Acute (2) Uncontrolled hypertension: Status: Acute Plan 34-year-old morbidly obese male who presents to the ED with shortness of breath and uncontrolled hypertension. Found to have a right middle lobe pneumonia. Right middle lobe pneumonia Continue with ceftriaxone and Zithromax. P.r.n. updrafts Now on room air, continue to monitor oxygen saturations Follow labs, he has no leukocytosis, blood cultures are pending Oxygen as needed. Uncontrolled hypertension added entresto,aldactone Hydralazine 10 mg IV push q.6 hours if systolic blood pressure greater than 170 Low-sodium diet possible chf with reduced EF: echo: ef 40-45% BNP 169 Follow labs His EKG was within normal limits started iv lasix drip. daily weight ,i/o. overnight events noted -has 3.3 sec pause -no other episode will check tsh pacer pad/atropin at bedside avoid rate control meds. ? sleep apnea : overnight pulse oxymetry ordered . dvt prophylax: s/c lovenox. ongoing need for stay:chf -need iv lasix , renal function /electrolytes Quality Stroke Does the patient have a stroke diagnosis?: No VTE Prior VTE?: No VTE Risk Level:: Medical - moderate - high VTE Device Contraindication: Treatment Not Indicated VTE Drug Contraindication: N/A - Med Ordered
[2024-10-13 17:49] LABS: Thyroid Stimulating Hormone 3.15 uIU/mL (0.32-4.0)
[2024-10-13] MEDS: ALPRAZolam 0.5 MG TABLET PO (19:42)
[2024-10-13] MEDS: Melatonin 3 MG TABLET 6 MG PO (21:58)
[2024-10-14 02:35] VITALS: BP 126/64; PULSE 90; RESP 18; TEMP 36.1; O2SAT 97
[2024-10-14] MEDS: Omeprazole 20 MG CAPSULE.DR PO (05:25)
[2024-10-14 07:20] LABS: Anion Gap 12 (12-20); Blood Urea Nitrogen 12 mg/dL (9-16); Carbon Dioxide 25 mmol/L (22-29); Chloride 105 mmol/L (96-108); Creatinine Clr Calc Pharmacy 246.1; Estimated Glomerular Filt Rate > 60; Glucose Random 114 mg/dL (60-115); Potassium 4.1 mmol/L (3.3-5.1); Sodium 138 mmol/L (135-145)
[2024-10-14 07:30] LABS: B Type Natriuretic Peptide 52 pg/mL (<100)
[2024-10-14 08:00] VITALS: BP 165/102; PULSE 87; RESP 14; TEMP 36.1; O2SAT 93
--- NOTE | 2024-10-14 08:28 | P.PNIM_ITS ---
Subjective Subjective Date of Service: 10/14/24 Interval History: chf Review of Systems sob seems improving denies any chest pain has some leg edema Review of Systems: Yes all other systems are reviewed and are negative Physical Exam 2 Vital Signs: Vital Signs: Last Vital Signs Temp 97 F 10/14/24 02:35 Pulse 90 10/14/24 02:35 Resp 18 10/14/24 02:35 BP 126/64 10/14/24 02:35 Pulse Ox 97 10/14/24 02:35 O2 Del Method Room Air 10/14/24 02:35 O2 Flow Rate 2 10/12/24 12:10 BMI result Body Mass Index 68.2 Appearance: Alert.? Oriented X3.? . cvs: rrr, [id number] jvd res: air entry improving abd: no rebound or guarding ,nt, bs present. ext pulses present , no cyanosis ,1+ edema. neuro: axo3 , nonfocal. Objective Data Active Medications Acetaminophen (Acetaminophen 325 Mg Tablet) 650 mg PO Q6H PRN PRN Reason: Pain, Mild 1-3,fever,headache Albuterol/Ipratropium (Albuterol/Iprat 2.5/0.5mg 3 Ml Ampul.Neb) 3 ml INHALE Q4H PRN PRN Reason: Shortness of Breath/Wheezing Alprazolam (Alprazolam 0.5 Mg Tablet) 0.5 mg PO DAILY PRN PRN Reason: anxiety Last Admin: 10/13/24 19:42 Dose: 0.5 mg Documented By: SUNDEEP Amlodipine Besylate (Amlodipine Besylate 2.5 Mg Tablet) 2.5 mg PO BID [facility]; Protocol Atropine Sulfate (Atropine Sulfate 1 Mg/10 Ml Syringe) 1 mg IVPUSH ONCE PRN PRN Reason: bradycardia Calcium Carbonate (Calcium Carbonate 750 Mg Tab.Chew) 750 mg PO Q4H PRN PRN Reason: Heartburn Ceftriaxone Sodium (Ceftriaxone Sodium 1 Gm Vial) 1 gm IVPUSH Q24H [facility] Last Admin: 10/13/24 11:55 Dose: 1 gm Documented By: JAMIE Enoxaparin Sodium (Enoxaparin Sodium 40 Mg/0.4 Ml Syringe) 40 mg SUBCUT Q24H [facility] Last Admin: 10/13/24 14:30 Dose: 40 mg Documented By: JAMIE Hydralazine HCl (Hydralazine Hcl 20 Mg/Ml Vial) 10 mg IVPUSH Q6H PRN; Protocol PRN Reason: Hypertension SBP >170 Last Admin: 10/13/24 03:43 Dose: 10 mg Documented By: JOAO Azithromycin 500 mg/ Sodium (Chloride) 250 mls @ 125 mls/hr IV Q24H [facility] Last Infusion: 10/13/24 14:24 Dose: Infused Documented By: JAMIE Furosemide 200 mg/ Sodium (Chloride) 100 mls @ 1 mls/hr IVCONT .Q24H [facility] Last Admin: 10/13/24 14:31 Dose: 2 mg/hr, 1 mls/hr Documented By: JAMIE Magnesium Hydroxide (Milk Of Magnesia 30 Ml Oral.Susp) 30 ml PO DAILY PRN PRN Reason: Constipation Melatonin (Melatonin 3 Mg Tablet) 6 mg PO BEDTIME PRN PRN Reason: Insomnia Last Admin: 10/13/24 21:58 Dose: 6 mg Documented By: SUNDEEP Nicotine (Nicotine 14 Mg Patch.Td24) 14 mg TRANSDERMA DAILY [facility] Last Admin: 10/13/24 09:40 Dose: 14 mg Documented By: JAMIE Nicotine Polacrilex (Nicotine Polacrilex 2 Mg Gum) 2 mg BUCCAL Q2H PRN PRN Reason: Nicotine Cravings Last Admin: 10/12/24 16:27 Dose: 2 mg Documented By: DO Omeprazole (Omeprazole 20 Mg Capsule.Dr) 20 mg PO DAILY@0630 [facility] Last Admin: 10/14/24 05:25 Dose: 20 mg Documented By: SUNDEEP Ondansetron HCl (Ondansetron Hcl 4 Mg/2 Ml Vial) 4 mg IVPUSH Q8H PRN PRN Reason: Nausea and Vomiting Sacubitril/Valsartan (Sacubitril/Valsartan 1 Tab Tablet) 1 tab PO BID [facility]; Protocol Last Admin: 10/13/24 19:42 Dose: 1 tab Documented By: SUNDEEP Comments: 168/104 Sodium Chloride (0.9 % Sodium Chloride Flush 3 Ml Syringe) 3 ml IVFLUSH QSHIFT [facility] Last Admin: 10/13/24 19:46 Dose: 3 ml Documented By: SUNDEEP Spironolactone (Spironolactone 25 Mg Tablet) 25 mg PO DAILY [facility]; Protocol Last Admin: 10/13/24 14:30 Dose: 25 mg Documented By: JAMIE Labs 10/13/24 06:01 10/14/24 06:30 Labs: Laboratory Results - last 24 hr 10/13/24 10/14/24 06:01 06:30 Anion Gap 12 Estim Creat Clear Calc 246.1 Estimated GFR > 60 Random Glucose 114 Calcium 9.0 B-Natriuretic Peptide 52 TSH 3.15 Microbiology Microbiology Results: Microbiology 10/12/24 11:16 Blood Culture - Preliminary Blood - Venous No growth after 24 hours. 10/12/24 11:18 Blood Culture - Preliminary Blood - Venous No growth after 24 hours. Assessment and Plan (1) Acute decompensated heart failure: Status: Acute (2) Uncontrolled hypertension: Status: Acute Plan 34-year-old morbidly obese male who presents to the ED with shortness of breath and uncontrolled hypertension. Found to have a right middle lobe pneumonia. Right middle lobe pneumonia Continue with ceftriaxone and Zithromax. P.r.n. updrafts Now on room air, continue to monitor oxygen saturations Follow labs, he has no leukocytosis, blood cultures are pending Oxygen as needed. Uncontrolled hypertension adjusted entresto,aldactone , continue lasix drip. Low-sodium diet possible chf with reduced EF: echo: ef 40-45% BNP 169 Follow labs His EKG was within normal limits started iv lasix drip. daily weight ,i/o. overnight events noted -has pause around 3 sec today also/sleeping tsh-normal pacer pad/atropin at bedside avoid rate control meds. ? sleep apnea : overnight pulse oxymetry ordered . dvt prophylax: s/c lovenox. ongoing need for stay:chf -need iv lasix , renal function /electrolytes Quality Stroke Does the patient have a stroke diagnosis?: No VTE Prior VTE?: No VTE Risk Level:: Medical - moderate - high VTE Device Contraindication: Treatment Not Indicated VTE Drug Contraindication: N/A - Med Ordered
[2024-10-14] MEDS: Sacubitril/Valsartan 24/26 1 TAB TABLET PO (08:58)
[2024-10-14] MEDS: Spironolactone 25 MG TABLET PO ×2 (08:58→16:22)
[2024-10-14] MEDS: amLODIPine Besylate 2.5 MG TABLET PO ×2 (08:58→21:00)
[2024-10-14] MEDS: Nicotine 14 MG PATCH.TD24 TRANSDERMA (08:59)
[2024-10-14] MEDS: cefTRIAXone sodium 1 GM VIAL IVPUSH (11:11)
[2024-10-14] MEDS: Azithromycin 500 MG in 0.9 % Sodium Chloride 250 ML 125 MG IV (11:12)
[2024-10-14 12:00] VITALS: BP 162/98; PULSE 84; RESP 18; TEMP 36.2; O2SAT 95
--- NOTE | 2024-10-14 12:23 | PM.PNCARD ---
Subjective Subjective Date of Service: 10/14/24 Principal diagnosis: CHF, hypertensive cardiomyopathy Interval history: Patient says he feels a lot better. Leg swelling and abdominal swelling has significantly improved. Shortness of breath has significantly improved. Blood pressure still remains elevated. Review of Systems Constitutional: Reports no additional constitutional complaints Cardiovascular: Reports leg edema (Improving), Reports dyspnea on exertion and Reports orthopnea (Improving) Respiratory: Reports no additional respiratory complaints and Reports dyspnea on exertion Reports system reviewed and no additional complaints, except as documented Physical Exam Vital Signs: Last Vital Signs Temp 97.2 F 10/14/24 12:00 Pulse 84 10/14/24 12:00 Resp 18 10/14/24 12:00 BP 162/98 H 10/14/24 12:00 Pulse Ox 95 10/14/24 12:00 O2 Del Method Room Air 10/14/24 12:00 O2 Flow Rate 2 10/12/24 12:10 BMI result Body Mass Index 68.2 Const General: cooperative, alert, awake and in distress mild and respiratory Nutritional Appearance: obese morbidly obese Orientation/consciousness: patient oriented x3 Limitations: no limitations HEENT Head: Yes normocephalic and Yes atraumatic Neck Neck: Yes trachea midline, Yes supple and Yes JVD Resp Effort & Inspection: normal respiratory effort Auscultation: clear to auscultation bilaterally Cardio Jugular venous distension: JVD Rate: regular rate Rhythm: regular rhythm Heart sounds: S1 normal heart sound present, S2 normal heart sound present, no click, no gallops, no murmurs and no rubs GI Inspection: Yes distended Auscultation: normal bowel sounds Skin General skin exam: no rashes or lesions noted Neuro General: patient oriented x3 and no focal motor deficits Extrem General: No clubbing, No cyanosis and Yes edema Psych Appearance: grossly normal Affect: Anxious affect present Objective Labs and Meds 10/13/24 06:01 10/14/24 06:30 Lab results: Laboratory Results - last 24 hr 10/13/24 10/14/24 06:01 06:30 Sodium 138 Potassium 4.1 Chloride 105 Carbon Dioxide 25 Anion Gap 12 BUN 12 Creatinine 0.88 Estim Creat Clear Calc 246.1 Estimated GFR > 60 Random Glucose 114 Calcium 9.0 B-Natriuretic Peptide 52 TSH 3.15 Progress Note: A&P Assessment and plan (1) Acute decompensated heart failure: Status: Acute Assessment and Plan: Acute decompensated congestive heart failure due to hypertensive heart disease with [id number] LV systolic dysfunction. Continue IV diuresis. Strict intake and output chart needs to be monitored. Replace electrolytes as needed. Continue monitor electrolytes and renal function. Uptitrate Entresto to 49-51 mg b.i.d.. Also increase spironolactone to 50 mg daily. Can give additional 25 mg right now. Monitor potassium levels. Overnight pauses noted but this is suspected to be due to sleep apnea. Once more euvolemic will consider starting him on carvedilol therapy. Will follow with you Time Spent With Patient Time: Total time managing care of this patient today ____ minutes. Progress Note: Quality Stroke Does the patient have a stroke diagnosis?: No Procedures Date of Service Date of Service: 10/14/24
[2024-10-14] MEDS: Furosemide 200 MG in 0.9 % Sodium Chloride 80 ML IVCONT (13:26)
[2024-10-14 15:56] VITALS: BP 160/94; PULSE 95; RESP 16; TEMP 36.3; O2SAT 94
--- NOTE | 2024-10-14 16:13 | P.CDIM_ITS ---
PROVIDER RESPONSE TEXT: To clarify, the appropriate diagnosis supported by the clinical indicators: Acute QUERY TEXT: PHYSICIAN'S DOCUMENTATION REQUEST Date of Query: 10/14/2024 09:29 AM EDT Patient Name: Yadiel Ayers Admit Date: 10/12/2024 Dear Yves Myers MD, A review of the medical record indicates additional documentation may be needed. Please review below and update the documentation accordingly. Clinical Indicators: Heart failure with EF 40-45% per ECHO BNP 169 IV Lasix drip, daily weight, I&O Possible CHF with reduced EF Clarify which of the following accurately represents the acuity of the CHF. Possible options might include: Acute Acute on chronic Compensated Chronic stable condition Remission Other (explain) Clinically unable to determine (explain) Thank you, Sara Childers RN Use of terms such as suspected, likely, concern for, or probable (associated with a specific diagnosi s that is being evaluated, monitored, or treated as if it exists) are acceptable and can be coded in the inpatient se tting, when documented at the time of discharge. Please use your independent medical judgment in providing your response. THIS QUERY IS PART OF THE PERMANENT MEDICAL RECORD
[2024-10-14] MEDS: Enoxaparin Sodium 40 MG/0.4 ML SYRINGE SUBCUT (16:23)
[2024-10-14] MEDS: ALPRAZolam 0.5 MG TABLET PO (16:29)
[2024-10-14 20:00] VITALS: BP 132/80; PULSE 100; RESP 18; TEMP 36.6; O2SAT 94
[2024-10-14] MEDS: Sacubitril/Valsartan 49/51 1 TAB TABLET PO (21:00)
[2024-10-14] MEDS: Melatonin 3 MG TABLET 6 MG PO (21:37)
[2024-10-14 23:37] VITALS: BP 142/84; PULSE 88; RESP 18; TEMP 36.1; O2SAT 91
[2024-10-15] VITALS (7 sets, daily range): BP systolic 112–144; BP diastolic 55–90; PULSE 84–102; RESP 16–18; TEMP 36–36.7; O2SAT 92–98
[2024-10-15] MEDS: Omeprazole 20 MG CAPSULE.DR PO (05:41)
[2024-10-15 07:01] LABS: Anion Gap 13 (12-20); Blood Urea Nitrogen 12 mg/dL (9-16); Carbon Dioxide 26 mmol/L (22-29); Chloride 103 mmol/L (96-108); Creatinine Clr Calc Pharmacy 264.1; Estimated Glomerular Filt Rate > 60; Glucose Random 111 mg/dL (60-115); Potassium 4.4 mmol/L (3.3-5.1); Sodium 138 mmol/L (135-145)
[2024-10-15 08:21] LABS: B Type Natriuretic Peptide 25 pg/mL (<100)
[2024-10-15] MEDS: Sacubitril/Valsartan 49/51 1 TAB TABLET PO (08:50)
[2024-10-15] MEDS: amLODIPine Besylate 2.5 MG TABLET PO (08:50)
[2024-10-15] MEDS: Spironolactone 25 MG TABLET 50 MG PO (08:50)
[2024-10-15] MEDS: Nicotine 14 MG PATCH.TD24 TRANSDERMA (08:50)
[2024-10-15] MEDS: cefTRIAXone sodium 1 GM VIAL IVPUSH (11:26)
[2024-10-15] MEDS: Azithromycin 500 MG in 0.9 % Sodium Chloride 250 ML 125 MG IV (11:36)
--- NOTE | 2024-10-15 12:40 | PM.PNCARD ---
Subjective Subjective Date of Service: 10/15/24 Principal diagnosis: CHF, hypertensive cardiomyopathy Interval history: Patient is feeling a lot better. He is able to breathe and walk without getting significantly short of breath. Leg edema has improved. Negative diuresis. Blood pressure is improving as well. Yesterday had a sleep evaluation and suggestive of severe sleep apnea. Review of Systems Constitutional: Reports no additional constitutional complaints Cardiovascular: Denies chest pain, Denies rapid heart rate, Reports leg edema, Denies Loss of Consciousness and Reports dyspnea on exertion Respiratory: Reports no additional respiratory complaints and Reports dyspnea on exertion Genitourinary: Reports no additional male genitourinary complaints Musculoskeletal: Reports no additional musculoskeletal complaints Reports system reviewed and no additional complaints, except as documented Physical Exam Vital Signs: Last Vital Signs Temp 97.4 F 10/15/24 11:19 Pulse 95 10/15/24 11:19 Resp 18 10/15/24 11:19 BP 112/90 H 10/15/24 11:19 Pulse Ox 92 10/15/24 11:19 O2 Del Method Room Air 10/15/24 11:19 O2 Flow Rate 2 10/12/24 12:10 BMI result Body Mass Index 68.2 Const General: cooperative, alert, awake and in distress mild and respiratory Nutritional Appearance: obese morbidly obese Orientation/consciousness: patient oriented x3 Limitations: no limitations HEENT Head: Yes normocephalic and Yes atraumatic Neck Neck: Yes trachea midline, Yes supple and Yes JVD Resp Effort & Inspection: normal respiratory effort Auscultation: clear to auscultation bilaterally Cardio Jugular venous distension: JVD Rate: regular rate Rhythm: regular rhythm Heart sounds: S1 normal heart sound present, S2 normal heart sound present, no click, no gallops, no murmurs and no rubs GI Inspection: Yes distended Auscultation: normal bowel sounds Skin General skin exam: no rashes or lesions noted Neuro General: patient oriented x3 and no focal motor deficits Extrem General: No clubbing, No cyanosis and Yes edema Psych Appearance: grossly normal Affect: Anxious affect present Objective Labs and Meds 10/13/24 06:01 10/15/24 06:10 Lab results: Laboratory Results - last 24 hr 10/15/24 06:10 Sodium 138 Potassium 4.4 Chloride 103 Carbon Dioxide 26 Anion Gap 13 BUN 12 Creatinine 0.82 Estim Creat Clear Calc 264.1 Estimated GFR > 60 Random Glucose 111 Calcium 9.0 B-Natriuretic Peptide 25 Progress Note: A&P Assessment and plan (1) Acute decompensated heart failure: Status: Acute Assessment and Plan: Patient improving slowly with a diuretics. High he feels a lot better. He is more amenable to treatment options at this point time. His blood pressures improved but still not normal. I would increase his Entresto to 97-103 mg b.i.d.. Continue Aldactone at current dose. Can switch to Bumex 2 mg IV push b.i.d.. Continue with strict intake and output chart which is important. Continue monitor renal function, electrolytes as well as blood pressure checks. Empiric CPAP therapy should be pursued. In the long run discussed with him about aggressive weight loss program. Will follow with him. Anticipate possibly discharge tomorrow. Time Spent With Patient Time: Total time managing care of this patient today ____ minutes. Progress Note: Quality Stroke Does the patient have a stroke diagnosis?: No Procedures Date of Service Date of Service: 10/15/24
--- NOTE | 2024-10-15 16:17 | MHC.CM.PN ---
EMR reviewed and per MD rounds, pt is not medically cleared for discharge due to management of CHF.
[2024-10-15] MEDS: Enoxaparin Sodium 40 MG/0.4 ML SYRINGE SUBCUT (16:30)
[2024-10-15] MEDS: Bumetanide 1 MG/4 ML VIAL IVPUSH ×2 (16:30→17:54)
[2024-10-15] MEDS: 0.9 % Sodium Chloride Flush 3 ML SYRINGE IVFLUSH ×2 (16:31→20:40)
--- NOTE | 2024-10-15 16:55 | HO.PM.IMPN ---
Subjective Subjective Date of Service: 10/15/24 Interval History: chf sleep apnea Review of Systems sob improving has edema denies any chest pain Review of Systems: Yes all other systems are reviewed and are negative Physical Exam Vital Signs: Vital Signs: Last Vital Signs Temp 96.8 F 10/15/24 15:54 Pulse 84 10/15/24 15:54 Resp 16 10/15/24 15:54 BP 136/64 10/15/24 15:54 Pulse Ox 93 10/15/24 15:54 O2 Del Method Room Air 10/15/24 15:54 O2 Flow Rate 2 10/12/24 12:10 BMI result Body Mass Index 68.2 Appearance: Alert.? Oriented X3.? . cvs: rrr, [id number] jvd res: air entry improving abd: no rebound or guarding ,nt, bs present. ext pulses present , no cyanosis ,1+ edema. neuro: axo3 , nonfocal. Objective Data Active Medications Acetaminophen (Acetaminophen 325 Mg Tablet) 650 mg PO Q6H PRN PRN Reason: Pain, Mild 1-3,fever,headache Albuterol/Ipratropium (Albuterol/Iprat 2.5/0.5mg 3 Ml Ampul.Neb) 3 ml INHALE Q4H PRN PRN Reason: Shortness of Breath/Wheezing Alprazolam (Alprazolam 0.5 Mg Tablet) 0.5 mg PO DAILY PRN PRN Reason: anxiety Last Admin: 10/14/24 16:29 Dose: 0.5 mg Documented By: JAMIE Amlodipine Besylate (Amlodipine Besylate 2.5 Mg Tablet) 2.5 mg PO DAILY [facility]; Protocol Atropine Sulfate (Atropine Sulfate 1 Mg/10 Ml Syringe) 1 mg IVPUSH ONCE PRN PRN Reason: bradycardia Bumetanide (Bumetanide 1 Mg/4 Ml Vial) 1 mg IVPUSH BID@0900,1700 [facility]; Protocol Last Admin: 10/15/24 16:30 Dose: 1 mg Documented By: SOSA Calcium Carbonate (Calcium Carbonate 750 Mg Tab.Chew) 750 mg PO Q4H PRN PRN Reason: Heartburn Ceftriaxone Sodium (Ceftriaxone Sodium 1 Gm Vial) 1 gm IVPUSH Q24H [facility] Last Admin: 10/15/24 11:26 Dose: 1 gm Documented By: JAMIE Enoxaparin Sodium (Enoxaparin Sodium 40 Mg/0.4 Ml Syringe) 40 mg SUBCUT Q24H [facility] Last Admin: 10/15/24 16:30 Dose: 40 mg Documented By: SOSA Hydralazine HCl (Hydralazine Hcl 20 Mg/Ml Vial) 10 mg IVPUSH Q6H PRN; Protocol PRN Reason: Hypertension SBP >170 Last Admin: 10/13/24 03:43 Dose: 10 mg Documented By: JOAO Azithromycin 500 mg/ Sodium (Chloride) 250 mls @ 125 mls/hr IV Q24H [facility] Last Infusion: 10/15/24 14:46 Dose: Infused Documented By: JAMIE Magnesium Hydroxide (Milk Of Magnesia 30 Ml Oral.Susp) 30 ml PO DAILY PRN PRN Reason: Constipation Melatonin (Melatonin 3 Mg Tablet) 6 mg PO BEDTIME PRN PRN Reason: Insomnia Last Admin: 10/14/24 21:37 Dose: 6 mg Documented By: SOSA Nicotine (Nicotine 14 Mg Patch.Td24) 14 mg TRANSDERMA DAILY [facility] Last Admin: 10/15/24 08:50 Dose: 14 mg Documented By: JAMIE Nicotine Polacrilex (Nicotine Polacrilex 2 Mg Gum) 2 mg BUCCAL Q2H PRN PRN Reason: Nicotine Cravings Last Admin: 10/12/24 16:27 Dose: 2 mg Documented By: DO Omeprazole (Omeprazole 20 Mg Capsule.Dr) 20 mg PO DAILY@0630 [facility] Last Admin: 10/15/24 05:41 Dose: 20 mg Documented By: SOSA Ondansetron HCl (Ondansetron Hcl 4 Mg/2 Ml Vial) 4 mg IVPUSH Q8H PRN PRN Reason: Nausea and Vomiting Sacubitril/Valsartan (Sacubitril/Valsartan 97/103 1 Tab Tablet) 1 tab PO BID [facility]; Protocol Sodium Chloride (0.9 % Sodium Chloride Flush 3 Ml Syringe) 3 ml IVFLUSH QSHIFT [facility] Last Admin: 10/15/24 16:31 Dose: 3 ml Documented By: SOSA Spironolactone (Spironolactone 25 Mg Tablet) 50 mg PO DAILY [facility]; Protocol Last Admin: 10/15/24 08:50 Dose: 50 mg Documented By: JAMIE Labs 10/13/24 06:01 10/15/24 06:10 Labs: Laboratory Results - last 24 hr 10/15/24 06:10 Anion Gap 13 Estim Creat Clear Calc 264.1 Estimated GFR > 60 Random Glucose 111 Calcium 9.0 B-Natriuretic Peptide 25 Microbiology Microbiology Results: Microbiology 10/12/24 11:16 Blood Culture - Preliminary Blood - Venous No growth after 48 hours. 10/12/24 11:18 Blood Culture - Preliminary Blood - Venous No growth after 48 hours. Assessment and Plan (1) Acute decompensated heart failure: Status: Acute (2) Uncontrolled hypertension: Status: Acute Plan 34-year-old morbidly obese male who presents to the ED with shortness of breath and uncontrolled hypertension. Found to have a right middle lobe pneumonia. Right middle lobe pneumonia Continue with ceftriaxone and Zithromax. P.r.n. updrafts Now on room air, continue to monitor oxygen saturations Follow labs, he has no leukocytosis, blood cultures are pending Oxygen as needed. hypertension: imrpoving adjusted entresto,aldactone , switched to bumex. Low-sodium diet possible chf with reduced EF: echo: ef 40-45% BNP 169 Follow labs His EKG was within normal limits started iv lasix drip. daily weight ,i/o. overnight events noted -has pause around 3 sec today also/sleeping tsh-normal pacer pad/atropin at bedside avoid rate control meds. ? sleep apnea : sleep study done -awaiting read dvt prophylax: s/c lovenox. ongoing need for stay:chf -need iv lasix , renal function /electrolytes Quality Stroke Does the patient have a stroke diagnosis?: No VTE Prior VTE?: No VTE Risk Level:: Medical - moderate - high VTE Device Contraindication: Treatment Not Indicated VTE Drug Contraindication: N/A - Med Ordered
[2024-10-15] MEDS: Sacubitril/Valsartan 97/103 1 TAB TABLET PO (20:39)
[2024-10-15] MEDS: ALPRAZolam 0.5 MG TABLET PO (20:39)
[2024-10-15] MEDS: Melatonin 3 MG TABLET 6 MG PO (20:40)
[2024-10-16 00:25] VITALS: PULSE 82; RESP 20; O2SAT 95
[2024-10-16 03:24] VITALS: BP 130/80; PULSE 98; RESP 16; TEMP 36.7; O2SAT 97
[2024-10-16] MEDS: Omeprazole 20 MG CAPSULE.DR PO (05:45)
[2024-10-16 07:59] VITALS: BP 130/80; PULSE 102; RESP 20; TEMP 36.1; O2SAT 92
[2024-10-16 08:40] LABS: Anion Gap 14 (12-20); Blood Urea Nitrogen 16 mg/dL (9-16); Calcium 9.2 mg/dL (8.4-10.2); Carbon Dioxide 26 mmol/L (22-29); Chloride 103 mmol/L (96-108); Creatinine Clr Calc Pharmacy 246.1; Estimated Glomerular Filt Rate > 60; Glucose Random 99 mg/dL (60-115); Potassium 4.5 mmol/L (3.3-5.1); Sodium 138 mmol/L (135-145)
[2024-10-16] MEDS: Bumetanide 1 MG/4 ML VIAL 2 MG IVPUSH (08:51)
[2024-10-16] MEDS: Sacubitril/Valsartan 97/103 1 TAB TABLET PO (08:51)
[2024-10-16] MEDS: Spironolactone 25 MG TABLET 50 MG PO (08:51)
[2024-10-16] MEDS: amLODIPine Besylate 2.5 MG TABLET PO (08:51)
[2024-10-16] MEDS: 0.9 % Sodium Chloride Flush 3 ML SYRINGE IVFLUSH (08:52)
[2024-10-16] MEDS: Nicotine 14 MG PATCH.TD24 TRANSDERMA (08:52)
[2024-10-16] MEDS: cefTRIAXone sodium 1 GM VIAL IVPUSH (10:12)
[2024-10-16] MEDS: Azithromycin 500 MG in 0.9 % Sodium Chloride 250 ML 125 MG IV (10:13)
--- NOTE | 2024-10-16 11:49 | MHC.CM.PN ---
Pt. has been medically cleared, he will go home via private transport, plan is self care.
--- NOTE | 2024-10-16 11:57 | PM.DS ---
DS: Providers Provider Date of Service: 10/16/24 Date of admission: 10/12/24 12:05 Date of discharge: 10/16/24 Primary care physician: STU Cooney Consults: 10/12/24 16:04 Consult to Cardiology Routine Consulting Provider: [facility] Reason for consultation: htn urgency, chf Has provider been notified: No Attending physician on discharge: Yves Myers Discharging clinician: Yves Myers DS: Diagnosis Discharge Diagnosis (1) Acute decompensated heart failure: Status: Acute (2) Uncontrolled hypertension: Status: Acute DS: Summary Hospital Course Hospital Course: HPI: Hospital course: hf with a reduced ejection fraction: EF is around 40- 45%, started on IV Lasix drip, improved-switched to p.o. Bumex 2 mg daily upon discharge. In addition patient was started on Entresto, spironolactone which he is tolerating well. Cardiology recommended to add Jardiance 10 mg daily as well as Coreg 3.125 mg b.i.d. upon discharge. Patient is to monitor renal function electrolytes outpatient. CHF education given. CHF education given-if gains weight 2 lb or more in a week-will need outpatient Lasix dosing assessment with PCP. Consider Follow-up with cardiology outpatient Uncontrolled hypertension: Blood pressure is better controlled currently on Entresto/amlodipine low-dose. Upon discharge cardio recommended to switch to Coreg in place of amlodipine. Cardiac pause episodes-thought to be related to sleep apnea, cardio currently recommended to start Coreg upon discharge. Pneumonia: Patient seems to be improved significantly, blood culture negative, leukocytosis. Patient recommended to complete p.o. Ceftin 500 mg b.i.d. for 5 more days and azithromycin 500 mg daily for 2 more days to complete a course of antibiotic. Patient recommended to consider outpatient chest imaging in 3-4 weeks to see resolution pneumonia. In addition patient also has probable sleep apnea: Sleep study done( will be read outpatient dr olmos's office), patient will go home with CPAP. Intermittent anxiety: Patient requested Xanax which is added limited supply for 2 weeks, further supply outpatient once see the PCP. Morbid obesity: Patient was strongly advised to lose weight, encouraged to cutdown calorie, consider outpatient bariatric follow-up. PLAN: P.o. Ceftin 500 mg b.i.d. for 5 days, azithromycin 500 mg daily for 2 days, consider outpatient chest imaging in 3-4 weeks to see resolution of pneumonia. Continue Entresto, spironolactone , Coreg, Jardiance and Bumex as prescribed CHF education given, CHF education given-if gains weight 2 lb or more in a week-will need outpatient Lasix dosing assessment with PCP. Consider Follow-up with cardiology outpatient. Xanax as prescribed above-2 week supply given, further supply as outpatient as per PCP. Probable sleep apnea: Need CPAP-which will be arranged out patiently next week likely, patient is in agreement with that. Cardiology may arrange their own appointment, monitor renal function electrolytes outpatient with PCP, consider outpatient pulmonary and bariatric follow-up. Above management discussed with the patient detail length he understand and in agreement with the above plan, time spent 40 minute, staff was present during conversation, all questions answered. Time Attestation Total time managing care of this patient today: 40 mintues. Discharge Coordination Time (in mins): 40 min Quality: Safe Use of Opioids Does Pt have an Active Cancer Diagnosis on the Problem List?: No Quality: Stroke Does the patient have a stroke diagnosis?: No Physical Exam Vital Signs: Vital Signs: Last Vital Signs Temp 97.0 F 10/16/24 07:59 Pulse 102 H 10/16/24 07:59 Resp 20 10/16/24 07:59 BP 130/80 10/16/24 07:59 Pulse Ox 92 10/16/24 07:59 O2 Del Method Room Air 10/16/24 07:59 O2 Flow Rate 2 10/12/24 12:10 BMI result Body Mass Index 68.2 Appearance: Alert.? Oriented X3.? . cvs: rrr, [id number]. res: air entry improving abd: no rebound or guarding ,nt, bs present. ext pulses present , no cyanosis neuro: axo3 , nonfocal. DS: Data Data Completed and Pending Labs on day of discharge: Laboratory Results - last 24 hr 10/16/24 08:09 Hold Purple Top SEE NOTE Sodium 138 Potassium 4.5 Chloride 103 Carbon Dioxide 26 Anion Gap 14 BUN 16 Creatinine 0.88 Estim Creat Clear Calc 246.1 Estimated GFR > 60 Random Glucose 99 Calcium 9.2 Preliminary micro results at discharge 10/12/24 11:16 Blood Culture - Preliminary Blood - Venous No growth after 48 hours. 10/12/24 11:18 Blood Culture - Preliminary Blood - Venous No growth after 48 hours. Imaging Chest x-ray: Radiologist's impression: ITS Impressions Chest X-Ray 10/12/24 09:12 IMPRESSION: Right middle lobe pneumonia suspected. Electronically signed by: Yadiel Grey MD 10/12/2024 09:59 AM EDT RP echo: 1. Technically limited study due to body habitus 2. [id number] LV systolic dysfunction with severe left ventricular hypertrophy with pseudonormal filling pattern 3. Limited visualization of cardiac valves with normal cardiac valvular Doppler Findings Procedure Information Contrast agent, definity, is being given per protocol without apparent complications. The quality of the study was technically difficult. The study quality is limited by patients body habitus. Left Ventricle Normal left ventricular cavity size. There is severely increased left ventricular wall thickness. The left ventricular systolic function is mild to moderately decreased. The visually estimated ejection fraction is between 40-45%. Spectral Doppler is indicative of a pseudonormal filling pattern. Right Ventricle The right ventricle was not well visualized. Atria The left atrium was not well visualized. Interatrial shunt cannot be excluded. The right atrium was not well visualized. Aortic Valve The aortic valve was not well visualized. There is no aortic valve stenosis. There is no aortic valve regurgitation. Mitral Valve The mitral valve was not well visualized. There is no mitral valve regurgitation. There is no mitral valve stenosis. Pulmonic Valve The pulmonic valve was not well visualized. Tricuspid Valve The tricuspid valve was not well visualized. Tricuspid regurgitation envelope is inadequate for calculation of right ventricular systolic pressure. Great Vessels The aorta was not well visualized. The pulmonary artery was not well visualized. Venous The inferior vena cava was not well visualized. Pericardium/Pleural The pericardium was not well visualized. Prior Study Comparison No prior study available for comparison. Discharge Plan Discharge Anticipated Discharge Date/Time: 10/16/24 11:38 Patient Disposition: Home, Self-Care Discharge Diagnosis: chf, pneumonia ,probable sleep apnea. Referrals: Trinity Williamson FNP [Primary Care Provider] - 1 Week Discharge Medications: New cefuroxime axetil 500 mg Tablet 500 mg PO Q12H Qty: 8 0RF azithromycin 500 mg Tablet 500 mg PO Q24H Qty: 4 0RF Entresto 97-103 mg Tablet 1 tab PO BID Qty: 180 0RF Protocol: Hold for SBP< HOLD for SBP < : 90 spironolactone 25 mg Tablet 50 mg PO DAILY Qty: 90 0RF Protocol: Hold for SBP< HOLD for SBP < : 90 alprazolam 0.5 mg Tablet 0.5 mg PO DAILY PRN (Reason: anxiety) Qty: 14 0RF bumetanide 1 mg Tablet 2 mg PO DAILY Qty: 180 0RF Protocol: Hold for SBP< HOLD for SBP < : 90 Jardiance 10 mg Tablet 10 mg PO DAILY Qty: 90 0RF (DME) blood pressure monitor [Blood Pressure Kit] Kit See Rx Instructions .Route Qty: 1 0RF Rx Instructions: As directed Continued acetaminophen 500 mg Tablet 1,500 mg PO DAILY PRN (Reason: Pain) Discharge Orders: Discharge Order (Routine); Ordered 10/16/24 Ordered By: Yves Myers Diet: Advance to usual diet Activity on Discharge: As tolerated Stand Alone Forms: Patient Portal Discharge page, Work/School Release Print Language: Luxembourgish Care Plan Goals: as below Health Concerns: P.o. Ceftin 500 mg b.i.d. for 5 days, azithromycin 500 mg daily for 2 days, consider outpatient chest imaging in 3-4 weeks to see resolution of pneumonia. Continue Entresto, spironolactone , Coreg, Jardiance and Bumex as prescribed CHF education given, CHF education given-if gains weight 2 lb or more in a week-will need outpatient Lasix dosing assessment with PCP. Consider Follow-up with cardiology outpatient. Xanax as prescribed above-2 week supply given, further supply as outpatient as per PCP. Probable sleep apnea: Need CPAP Cardiology may arrange their own appointment, monitor renal function electrolytes outpatient with PCP. Plan of Treatment: As above. Assessment: As above. Patient Instructions: Heart Failure (DC), Sleep Apnea (GEN), Chronic Hypertension (DC), Community Acquired Pneumonia (DC), Pneumonia (DC), CPAP (GEN)
--- NOTE | 2024-10-16 13:26 | PM.PNCARD ---
Subjective Subjective Date of Service: 10/16/24 Principal diagnosis: CHF, hypertensive cardiomyopathy Interval history: Feeling a lot better. Blood pressure is better controlled has diuresed well. Review of Systems Review of Systems Yes all other systems are reviewed and are negative Physical Exam Vital Signs: Last Vital Signs Temp 97.0 F 10/16/24 07:59 Pulse 102 H 10/16/24 07:59 Resp 20 10/16/24 07:59 BP 130/80 10/16/24 07:59 Pulse Ox 92 10/16/24 07:59 O2 Del Method Room Air 10/16/24 07:59 O2 Flow Rate 2 10/12/24 12:10 BMI result Body Mass Index 68.2 Const General: cooperative, alert, awake and in distress mild and respiratory Nutritional Appearance: obese morbidly obese Orientation/consciousness: patient oriented x3 Limitations: no limitations HEENT Head: Yes normocephalic and Yes atraumatic Neck Neck: Yes trachea midline, Yes supple and Yes JVD Resp Effort & Inspection: normal respiratory effort Auscultation: clear to auscultation bilaterally Cardio Jugular venous distension: JVD Rate: regular rate Rhythm: regular rhythm Heart sounds: S1 normal heart sound present, S2 normal heart sound present, no click, no gallops, no murmurs and no rubs GI Inspection: Yes distended Auscultation: normal bowel sounds Skin General skin exam: no rashes or lesions noted Neuro General: patient oriented x3 and no focal motor deficits Extrem General: No clubbing, No cyanosis and Yes edema Psych Appearance: grossly normal Affect: Anxious affect present Objective Labs and Meds 10/13/24 06:01 10/16/24 08:09 Lab results: Laboratory Results - last 24 hr 10/16/24 08:09 Hold Purple Top SEE NOTE Sodium 138 Potassium 4.5 Chloride 103 Carbon Dioxide 26 Anion Gap 14 BUN 16 Creatinine 0.88 Estim Creat Clear Calc 246.1 Estimated GFR > 60 Random Glucose 99 Calcium 9.2 Progress Note: A&P Assessment and plan (1) Acute decompensated heart failure: Status: Acute Assessment and Plan: Acute decompensated congestive heart failure in this young man most likely due to hypertensive heart disease and severe sleep apnea related to morbid obesity. We discussed about management of weight. Would benefit from GLP 1 antagonist. Start Jardiance 10 mg as well as continue Entresto and spironolactone therapy. Add Coreg 3.125 mg b.i.d. to his regimen. Needs any emergent sleep study in-lab and initiation of treatment. Will also need ischemic workup which can be done as outpatient. Heart failure management daily weight monitoring avoidance salt loading was discussed. Will follow-up as outpatient. Time Spent With Patient Time: Total time managing care of this patient today ____ minutes. Progress Note: Quality Stroke Does the patient have a stroke diagnosis?: No Procedures Date of Service Date of Service: 10/16/24
== END 2024-10-16 14:09 | disposition home or self-care (01) | DRG 139 ==
LOC: HO.ED 11:41 → HO.EDOVER 12:15 → HO.IMC 15:48
PROVIDERS: Nurse Practitioner Family; Physician Assistant; Admitting Provider Internal Medicine; Emergency Provider Emergency Medicine; PCP Nurse Practitioner Family; Visit Provider Internal Medicine
DX: J18.9 Pneumonia, unspecified organism (principal); I50.21 Acute systolic (congestive) heart failure; I11.0 Hypertensive heart disease with heart failure; I49.5 Sick sinus syndrome; Z68.44 Body mass index [BMI] 60.0-69.9, adult; E66.01 Morbid (severe) obesity due to excess calories; F17.210 Nicotine dependence, cigarettes, uncomplicated; G47.33 Obstructive sleep apnea (adult) (pediatric); Z71.3 Dietary counseling and surveillance; Z20.822 Contact with and (suspected) exposure to COVID-19; Z71.6 Tobacco abuse counseling; Z79.899 Other long term (current) drug therapy
CPT/HCPCS: 0241U; 36415; 71046; 80048; 80053; 83036; 83735; 83880; 84443; 84484; 85025; 85379; 85610; 87040; 93005; 93306; 94660; 99285; J0360; J0456; J0696; J1650; J1920; J1938; J1939; Q9957

== ENCOUNTER → 2024-10-12 09:12 | Outpatient (BNV) | payer OTHER, SELFPAY | PROVIDERS: Admitting Provider Internal Medicine; Emergency Provider Emergency Medicine; Visit Provider Internal Medicine Cardiovascular Disease | DX: R06.02 Shortness of breath (principal) | CPT/HCPCS: 93010 ==

== ENCOUNTER → 2024-10-12 09:12 | Outpatient (BNV) | payer OTHER, SELFPAY | PROVIDERS: Emergency Provider Emergency Medicine; Visit Provider Radiology Diagnostic Radiology | DX: R06.02 Shortness of breath (principal) | CPT/HCPCS: 71046 ==

== ENCOUNTER 2024-10-12 12:05 | Outpatient (BNV) | payer OTHER, SELFPAY | END 2024-10-13 07:00 | PROVIDERS: Admitting Provider Internal Medicine; Emergency Provider Emergency Medicine; Visit Provider Internal Medicine Cardiovascular Disease | DX: I42.2 Other hypertrophic cardiomyopathy (principal) | CPT/HCPCS: 93306 ==

== ENCOUNTER → 2024-10-12 12:05 | Outpatient (BNV) | payer OTHER, SELFPAY | PROVIDERS: Admitting Provider Internal Medicine; Emergency Provider Emergency Medicine; Visit Provider Internal Medicine Cardiovascular Disease | DX: I50.9 Heart failure, unspecified (principal) | CPT/HCPCS: 99222 ==

== ENCOUNTER → 2024-10-12 12:05 | Outpatient (BNV) | payer OTHER, SELFPAY | PROVIDERS: Admitting Provider Internal Medicine; Emergency Provider Emergency Medicine; Visit Provider Nurse Practitioner Family | DX: I50.9 Heart failure, unspecified (principal); I10 Essential (primary) hypertension | CPT/HCPCS: 99232; 99499 ==

== ENCOUNTER 2024-10-29 13:22 | Outpatient (AMB) | payer OTHER, SELFPAY ==
--- NOTE | 2024-10-29 13:27 | MHC.OFFVIS ---
Vital Signs 10/29/24 13:29 Height 6 ft 2 in Weight 520 lb 4.655 oz BMI 66.8 BP 136/64 Blood Pressure Location Rt radial Position Sitting Pulse 100 Pulse Source Pulse Oximeter Intake [place] [facility] [place]HTN/ Urgency Pneumonia Software Design Analyst Required: No Accompanied by: Self / Same As Patient Allergies No Known Allergies Allergy (Verified 10/12/24 09:04) Medication List - Last Reconciled 10/29/24 by Michele Santos NP acetaminophen 1,500 mg PO DAILY PRN alprazolam 0.5 mg PO DAILY PRN blood pressure monitor (Blood Pressure Kit) As directed bumetanide 2 mg See Protocol PO DAILY empagliflozin (Jardiance) 10 mg PO DAILY sacubitril-valsartan 97-103 mg (Entresto) 1 tab See Protocol PO BID spironolactone 50 mg See Protocol PO DAILY valsartan 160 mg PO BID HPI Comments Details: This is a 34-year-old male patient coming in for a hospital discharge follow-up. Patient was recently in the hospital for shortness of breath, worsening bilateral leg edema, and hypertensive urgency with a BP at 234/156. Patient's echocardiogram in the hospital showed [id number] LV systolic dysfunction with severe LVH and diastolic dysfunction. Patient states that he has been chronically having bilateral leg edema and elevated blood pressures but was never on any medications for this. Patient was diuresed in the hospital and was discharged on neurohormonal guideline-directed medical therapy. Today, patient states that he is doing better overall however continues to have difficulty sleeping. Patient had completed a sleep study that showed severe sleep apnea and is seeing pulmonology next week. Patient is otherwise denying any exertional chest pain, shortness of breath, palpitations, dizziness, PND, leg edema, presyncope, or syncope. Patient states that he has been tolerating all his prescribed medications but has been having a hard time with the insurance about Entresto and Jardiance. [facility] Family History Paternal Grandmother Heart failure Diabetes Father High blood pressure Social History Household Members: Spouse Housing: Apartment Do you presently have visiting nurse or other home services: No Alcohol intake: current Alcohol intake frequency: holidays/special occasions only Patient Tobacco Use Status: Current everyday Tobacco user Substance Use Type: Marijuana service: No Review of Systems Const Denies chills, Denies fatigue, Denies fever(s), Denies frequent falls, Denies weakness, Denies weight gain and Denies weight loss ENT Denies dizziness Card Denies chest pain, Denies leg edema, Denies lightheadedness, Denies palpitations, Denies dyspnea and Denies dyspnea on exertion Resp Denies cough, Denies dyspnea and Denies dyspnea on exertion GI Denies hematochezia Musc Denies abnormal gait, Denies muscle weakness, Denies numbness, Denies radiating pain into limb and Denies tingling Neuro Denies abnormal gait, Denies dizziness, Denies frequent falls, Denies numbness, Denies tingling and Denies weakness Endo Denies fatigue and Denies palpitations Physical Exam Vital Signs: Last Vital Signs Pulse 100 10/29/24 13:29 BP 136/64 10/29/24 13:29 BMI result Body Mass Index 66.8 Const General: cooperative, healthy appearing, comfortable and no acute distress Orientation/consciousness: patient oriented x3 HEENT Head: Yes normal to inspection Neck Neck: Yes normal visual inspection, Yes trachea midline and Yes supple Chest Chest palpation & inspection: normal inspection of the chest Resp Effort & Inspection: normal respiratory effort Auscultation: clear to auscultation bilaterally, no crackles, no rales, no rhonchi and no wheezes Cardio Jugular venous distension: no JVD Palpation: normal PMI Rate: regular rate Rhythm: regular rhythm Heart sounds: S1 normal heart sound present, S2 normal heart sound present, no click, no gallops, no murmurs and no rubs Peripheral pulses: Peripheral pulses 2+ throughout GI Inspection: Yes normal to inspection Palpation (GI): Soft to palpation Auscultation: normal bowel sounds Skin General skin exam: no rashes or lesions noted Neuro General: patient oriented x3 Extrem General: Yes normal to inspection, No no pedal edema and No calf tenderness Psych Appearance: grossly normal Mental Status: mental status grossly normal Speech and movement: Normal speech and movement present Assessment & Plan Assessment & Plan (1) Acute decompensated heart failure: Code(s): I50.9 - Heart failure, unspecified Category: Medical Plan: 10/13/2024-echo study showed with [id number] LV systolic dysfunction with the estimated ejection fraction between 40-45%, with severe LVH and pseudo normal filling pattern. Clinically stable and euvolemic. Continue Bumex, spironolactone, and valsartan. Our office will work with prior authorization for Jardiance and Entresto. Patient understands to switch from valsartan to Entresto upon approval. Patient we will also start low-dose carvedilol twice daily. Discussed in detail signs and symptoms to look for with heart failure. Advised low-salt diet, fluid restriction between 1.5-2 L, and daily weight monitoring. Patient to complete ischemic workup and already has an order for myocardial perfusion study with Lexiscan. There maybe issues with his weight for nuclear images and therefore we will investigate this further. Patient will be informed if change in plan. (2) Hypertension: Code(s): I10 - Essential (primary) hypertension Category: Medical Plan: Blood pressure today is well-controlled. Continue prescribed medications. Patient to switch from valsartan to Entresto once prior authorization is complete. Advised monitoring blood pressures at home and maintaining a log of it. Ideally, blood pressure goal less than 130/80. (3) Obstructive sleep apnea: Code(s): G47.33 - Obstructive sleep apnea (adult) (pediatric) Category: Medical Plan: 10/12/2024-patient underwent a sleep study that showed very very severe obstructive sleep apnea. Upcoming pulmonology consult on 11/03. (4) Morbid obesity: Code(s): E66.01 - Morbid (severe) obesity due to excess calories Category: Medical Plan: BMI at 66.8. Patient states he has been trying to stay active and has a adapter to a better diet however has been having a hard time for many years in regards to weight loss. Patient to explore further weight loss management plans with PCP. Patient states that he has lab workup with PCP. Ideally, LDL goal less than 70. (5) Hospital discharge follow-up: Code(s): Z09 - Encounter for follow-up examination after completed treatment for conditions other than malignant neoplasm Plan: As above. Advised heart healthy diet, regular exercise, weight loss, med compliance, and aggressive management of vascular risk factors. Follow-up in 3 months. In the interim, patient will call the office with any concerns or change in symptoms. This note was generated using voice recognition software. While every effort has been made to ensure accuracy and proper automatic beading lathe operator, there may be occasional errors that could affect the content or meaning of the described symptoms. Medications: New carvedilol must administer with a meal/food 3.125 mg PO BID 90 tabs 3RF Changed From sacubitril-valsartan 97-103 mg (Entresto) 1 tab See Protocol PO BID 180 tabs 0RF To sacubitril-valsartan 97-103 mg (Entresto) 1 tab PO BID 180 tabs 3RF Refilled empagliflozin (Jardiance) 10 mg PO DAILY 90 tabs 3RF Discontinued azithromycin Discontinued Reason: Patient no longer taking 500 mg PO Q24H 4 tabs 0RF cefuroxime axetil Discontinued Reason: Patient no longer taking 500 mg PO Q12H 8 tabs 0RF Coding Level of Care Code Est Pt Level 4 (47208) Complex EM visit Add On G2211 Diagnoses Acute decompensated heart failure I50.9 Hypertension I10 Obstructive sleep apnea G47.33 Morbid obesity E66.01 Hospital discharge follow-up Z09 Time Spent (min) 32 Comment Time spent in reviewing the chart, test results, assessment, counseling and documentation.
[2024-10-29 13:29] VITALS: BP 136/64; PULSE 100; BMI 66.8
== END 2024-10-29 13:59 | disposition home or self-care (01) ==
LOC: HO.HCS 13:23
PROVIDERS: PCP Nurse Practitioner Family
DX: I50.9 Heart failure, unspecified (principal); I10 Essential (primary) hypertension; G47.33 Obstructive sleep apnea (adult) (pediatric); E66.01 Morbid (severe) obesity due to excess calories; Z09 Encounter for follow-up examination after completed treatment for conditions other than malignant neoplasm
CPT/HCPCS: 99214

== ENCOUNTER → 2024-10-29 13:22 | Outpatient (BNVA) | payer OTHER, SELFPAY | PROVIDERS: PCP Nurse Practitioner Family ==

== ENCOUNTER 2024-11-03 15:33 | Outpatient (AMB) | payer OTHER, SELFPAY ==
[2024-11-03 15:40] VITALS: BP 132/82; PULSE 97; O2SAT 93; BMI 66.8
--- NOTE | 2024-11-03 15:40 | A.OFFVIS_ITS ---
Vital Signs 11/03/24 15:40 Height 6 ft 2 in Weight 520 lb BMI 66.8 BP 132/82 Blood Pressure Location Lt brachial Position Sitting Pulse 97 Pulse Source Pulse Oximeter Pulse Oximetry (%) 93 Oxygen Delivery Method Room Air Intake Visit Reasons: Obstructive sleep apnea Intake Note: pt is here as a new patient for sleep apnea, he has not slept well for very long time, snoring, tired every day, gasping for air Right Of Way Cutter Required: No Allergies No Known Allergies Allergy (Verified 11/03/24 16:18) Medication List - Last Reconciled 11/03/24 by Jake Leone MD acetaminophen 1,500 mg PO DAILY PRN alprazolam 0.5 mg PO DAILY PRN blood pressure monitor (Blood Pressure Kit) As directed bumetanide 2 mg See Protocol PO DAILY carvedilol 3.125 mg PO BID empagliflozin (Jardiance) 10 mg PO DAILY sacubitril-valsartan 97-103 mg (Entresto) 1 tab PO BID spironolactone 50 mg See Protocol PO DAILY valsartan 160 mg PO BID Do you need a note to return to daycare/school/sports/work: No HPI HPI Obstructive sleep apnea: Details: THIS GENTLEMAN IS 34 YEARS OLD, 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 HE WAS HOSPITALIZED LAST MONTH WITH ACUTE CONGESTIVE HEART FAILURE. BECAUSE HE IS MORBIDLY OBESE HE UNDERWENT HOME-BASED SLEEP STUDY, THE RESULTS ARE CONSISTENT WITH VERY SEVERE OBSTRUCTIVE SLEEP APNEA AND NOCTURNAL HYPOXEMIA. HE IS HERE TODAY INITIAL EVALUATION AND TREATMENT. HE STATES THAT HE HAS BEEN GROSSLY OBESE RIGHT FROM CHILDHOOD, IT IS PROBABLY GENETIC FROM HIS MOTHER AND . GRANDFATHER SIDE IN SPITE OF HIS MORBID OBESITY HE HAD EMPLOYMENT WITH THE [employer] 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 HE SAY IS THAT HE ACTUALLY PUT ON LOT OF WEIGHT LATELY. AND THAT WAS MOSTLY DUE TO FLUID RETENTION. NOW SINCE HIS HOSPITALIZATION AND TREATMENT WITH DIURETIC THERAPY HE HAS LOST SIGNIFICANT WEIGHT BUT HE IS STILL OVER 500 LB. HE HAS HISTORY OF POOR SLEEP AT NIGHT WAKING UP FREQUENTLY . WITH SHORTNESS OF BREATH HE HAD FATIGUE AND EXCESSIVE DAYTIME SLEEPINESS FOR THE LAST FEW YEARS BUT HE KEPT HIMSELF ACTIVE DURING THE DAYTIME. HE HAD HISTORY OF DEPRESSION AND, SLOWLY IMPROVED SINCE HIS MARRIAGE 3 YEARS AGO. .COUNTS INCLUDE 234 BEDS AT THE [facility] IS REVIEWED COUNTS INCLUDE 234 BEDS AT THE [facility] Medical History (Updated 11/03/24 @ 16:32 by Jake Leone MD) Nocturnal hypoxemia Family History Paternal Grandmother Heart failure Diabetes Father High blood pressure Social History Household Members: Spouse Housing: Apartment Do you presently have visiting nurse or other home services: No Alcohol intake: current Alcohol intake frequency: holidays/special occasions only Patient Tobacco Use Status: Current everyday Tobacco user Cigarette Packs Per Day: 0.25 Cigarettes Per Day: 2 Substance Use Type: Marijuana service: No Review of Systems Const All systems reviewed & are unremarkable except as noted in HPI and below Reports weakness Eyes Reports no additional complaints ENT Reports no additional complaints Card Reports dyspnea on exertion and Reports orthopnea Resp Reports as per HPI and Reports dyspnea on exertion GI Reports no additional complaints Reports no additional complaints Musc Reports no additional complaints Skin/Breast Reports system reviewed and no additional complaints, except as documented Neuro Reports weakness and Reports other (FEELING OF FATIGUE AND MENTAL FOG FOR THE LAST FEW YEARS.) Psych Reports depression (HISTORY OF DEPRESSION BUT IT IS BETTER WITHOUT ANY MEDIC ATION) Endo Reports no additional complaints Jeff/Lymph Reports no additional complaints Aller/Immun Reports no additional complaints Physical Exam Vital Signs: Last Vital Signs Pulse 97 11/03/24 15:40 BP 132/82 11/03/24 15:40 Pulse Ox 93 11/03/24 15:40 Oxygen Delivery Method Room Air 11/03/24 15:40 BMI result Body Mass Index 66.8 THIS GENTLEMAN IS PER MORBIDLY OBESE, WITH PROTRUDING ABDOMEN , WITH TRACE OF EDEMA OF THE LEGS. Const General: comfortable, no acute distress, alert and awake Orientation/consciousness: patient oriented x3 HEENT Head: Yes normal to inspection General nose exam: No nasal polyps present and No nasal discharge present Face and sinus: Yes sinuses nontender Mouth: oropharynx abnormals (NARROW AND CROWDED, MALLAMPATI CLASS 3) Throat: Yes posterior oropharynx normal Eyes General: appearance normal, both eyes and all related structures Neck Neck: Yes normal visual inspection, Yes no lymphadenopathy, Yes trachea midline, Yes no JVD and Yes other (NECK CIRCUMFERENCE 21 IN) Thyroid: Thyroid normal Chest Chest palpation & inspection: normal inspection of the chest, normal palpation of entire chest wall and no tenderness Resp Other: PERCUSSION NOTE IS NOT PERCEPTIBLE BECAUSE OF THE THICK CHEST WALL BREATH SOUNDS ARE GENERALLY DIMINISHED ESPECIALLY OVER THE LOWER LOBES. NO WHEEZES OR CREPITATIONS ARE HEARD Cardio Palpation: PMI not normal (NOT PALPABLE) Rate: regular rate Rhythm: regular rhythm Heart sounds: no gallops and no murmurs GI Palpation (GI): Soft to palpation, nontender, No hepatosplenomegaly present, no masses and Other GI palpation findings present (ABDOMEN IS GROSSLY OBESE AND P ROTUBERANT) Auscultation: normal bowel sounds Back/Spine/Pelvis Thoracic/Lumbar Spine: thoracic and lumbar spine normal to inspection Skin General skin exam: no rashes or lesions noted Neuro General: patient oriented x3 and no focal motor deficits Cranial nerves: Yes CN's II-XII intact bilaterally Extrem General: Yes normal to inspection, Yes no clubbing, cyanosis or edema and Yes no calf tenderness Psych Appearance: grossly normal and well kempt Speech and movement: Normal speech and movement present Results Reviewed Results Reviewed: HOME-BASED SLEEP STUDY ON 10/14/2024 SHOWS: VERY SEVERE OBSTRUCTIVE SLEEP APNEA WITH TOTAL SLEEP TIME AHI 78, MOST OF THE SLEEP WAS IN SUPINE POSITION, NOCTURNAL HYPOXEMIA WITH AVERAGE O2 SAT DURING THE NIGHT 80 TO SENT AND O2 SAT BELOW 88% FOR 205 MINUTES Assessment & Plan Assessment & Plan (1) Morbid obesity: Comment: HE IS A CASE OF SUPER MORBID OBESITY, DEFINITELY A 100% HIGH RISK FOR SLEEP APNEA Code(s): E66.01 - Morbid (severe) obesity due to excess calories Category: Medical Plan: THE DISCUSSED ABOUT THE 0 SUPER MORBID OBESITY. I THINK ONCE V START HIM ON TREATMENT FOR DEMARIO HE WILL BE MORE ENERGETIC TO JOIN A WEIGHT MANAGEMENT PROGRAM. (2) Obstructive sleep apnea: Comment: HE IS A CONFIRMED CASE OF VERY VERY SEVERE OBSTRUCTIVE SLEEP APNEA WITH NOCTURNAL HYPOXEMIA Code(s): G47.33 - Obstructive sleep apnea (adult) (pediatric) Category: Medical Plan: NEEDS CPAP TITRATION STUDY ON AN URGENT BASIS. AND AFTER THAT WILL START HIM ON CPAP OR BIPAP SOON POSSIBLE (3) Nocturnal hypoxemia: Comment: NOCTURNAL HYPOXEMIA RELATED TO SLEEP-RELATED HYPOVENTILATION. Code(s): G47.34 - Idiopathic sleep related nonobstructive alveolar hypoventilation Category: Medical Plan: CPAP TITRATION IN THE SLEEP LAB, TO OVERCOME HIS OBSTRUCTIVE APNEA AND ALSO TO TREAT HYPOXEMIA. IN ADDITION TO USE OF CPAP OR BIPAP HE WILL PROBABLY NEED O2 SUPPLEMENTATION. Coding Level of Care Code New Pt Level 4 (87164) Diagnoses Morbid obesity E66.01 Obstructive sleep apnea G47.33 Nocturnal hypoxemia G47.34
== END 2024-11-03 16:15 | disposition home or self-care (01) ==
LOC: HO.HPS 15:34
PROVIDERS: PCP Nurse Practitioner Family; Visit Provider Internal Medicine
DX: E66.01 Morbid (severe) obesity due to excess calories (principal); G47.33 Obstructive sleep apnea (adult) (pediatric); G47.34 Idiopathic sleep related nonobstructive alveolar hypoventilation
CPT/HCPCS: 99204

== ENCOUNTER → 2024-11-03 15:33 | Outpatient (BNVA) | payer OTHER, SELFPAY | PROVIDERS: PCP Nurse Practitioner Family; Visit Provider Internal Medicine ==

== ENCOUNTER → 2024-11-09 19:30 | Outpatient (BNV) | payer OTHER, SELFPAY | PROVIDERS: PCP Nurse Practitioner Family; Visit Provider Internal Medicine | DX: G47.33 Obstructive sleep apnea (adult) (pediatric) (principal); R09.02 Hypoxemia | CPT/HCPCS: 95811 ==

== ENCOUNTER → 2024-11-09 19:30 | Outpatient (REF) | payer OTHER, SELFPAY | LOC: HO.SL 19:30 | PROVIDERS: PCP Nurse Practitioner Family; Visit Provider Internal Medicine | DX: G47.33 Obstructive sleep apnea (adult) (pediatric) (principal); G47.34 Idiopathic sleep related nonobstructive alveolar hypoventilation | CPT/HCPCS: 95811 ==

== ENCOUNTER 2024-12-16 15:47 | Outpatient (AMB) | payer OTHER, SELFPAY ==
[2024-12-16 15:53] VITALS: BP 122/72; PULSE 105; O2SAT 96; BMI 65.1
--- NOTE | 2024-12-16 15:53 | MHC.OFFVIS ---
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 Allergies No Known Allergies Allergy (Verified 12/16/24 16:21) Medication List - Last Reconciled 12/16/24 by Jake Leone MD acetaminophen 1,500 mg PO DAILY PRN alprazolam 0.5 mg PO DAILY PRN blood pressure monitor (Blood Pressure Kit) As directed bumetanide 2 mg See Protocol PO DAILY carvedilol 3.125 mg PO BID empagliflozin (Jardiance) 10 mg PO DAILY sacubitril-valsartan 97-103 mg (Entresto) 1 tab PO BID spironolactone 50 mg See Protocol PO DAILY Do you need a note to return to daycare/school/sports/work: No HPI HPI Obstructive sleep apnea: Details: THIS 34 YEARS OLD GENTLEMAN WITH SUPER MORBID OBESITY, HAS BEEN DIAGNOSED TO HAVE SEVERE OBSTRUCTIVE SLEEP APNEA. BECAUSE OF NOCTURNAL HYPOXEMIA HE UNDERWENT CPAP TITRATION STUDY ON 11/17/24 HIS SLEEP APNEA WAS CONTROLLED WELL WITH PRESSURE OF 14 CM. HE HAS BEEN ORDERED A CT PAP DEVICE AT HOME WITH CPAP OF 14 CM AND USING NASAL VS FULLFACE MASK. HE IS STRUGGLING TO USE HIS CPAP, SAY IS HE WAKES UP AFTER 2 OR 3 HOURS OF USAGE AND THEN CAN NOT PUT THE MASK BACK ON. SO HE IS GETTING ABOUT 3 HOURS OF SLEEP WITH THE CPAP. HE HAS AN ELEMENT OF ANXIETY/INSOMNIA, WHICH RESULTS IN DIFFICULTY TO GO BACK TO SLEEP. HE ALSO FEELS IF THE PRESSURE IS NOT ENOUGH [facility] Medical History Nocturnal hypoxemia Family History Paternal Grandmother Heart failure Diabetes Father High blood pressure Social History Household Members: Spouse Housing: Apartment Do you presently have visiting nurse or other home services: No Alcohol intake: current Alcohol intake frequency: holidays/special occasions only Patient Tobacco Use Status: Current everyday Tobacco user Cigarette Packs Per Day: 0.25 Cigarettes Per Day: 4 Substance Use Type: Marijuana service: No Review of Systems Const All systems reviewed & are unremarkable except as noted in HPI and below Reports weakness Eyes Reports no additional complaints ENT Reports no additional complaints Card Reports dyspnea on exertion and Reports orthopnea Resp Reports as per HPI and Reports dyspnea on exertion GI Reports no additional complaints Reports no additional complaints Musc Reports no additional complaints Skin/Breast Reports system reviewed and no additional complaints, except as documented Neuro Reports weakness and Reports other (FEELING OF FATIGUE AND MENTAL FOG FOR THE LAST FEW YEARS.) Psych Reports depression (HISTORY OF DEPRESSION BUT IT IS BETTER WITHOUT ANY MEDICATION) Endo Reports no additional complaints Jeff/Lymph Reports no additional complaints Aller/Immun Reports no additional complaints Physical Exam THIS GENTLEMAN IS PER MORBIDLY OBESE, WITH PROTRUDING ABDOMEN , WITH TRACE OF EDEMA OF THE LEGS. Const General: comfortable, no acute distress, alert and awake Orientation/consciousness: patient oriented x3 HEENT Head: Yes normal to inspection General nose exam: No nasal polyps present and No nasal discharge present Face and sinus: Yes sinuses nontender Mouth: oropharynx abnormals (NARROW AND CROWDED, MALLAMPATI CLASS 3) Throat: Yes posterior oropharynx normal Eyes General: appearance normal, both eyes and all related structures Neck Neck: Yes normal visual inspection, Yes no lymphadenopathy, Yes trachea midline, Yes no JVD and Yes other (NECK CIRCUMFERENCE 21 IN) Thyroid: Thyroid normal Chest Chest palpation & inspection: normal inspection of the chest, normal palpation of entire chest wall and no tenderness Resp Other: PERCUSSION NOTE IS NOT PERCEPTIBLE BECAUSE OF THE THICK CHEST WALL BREATH SOUNDS ARE GENERALLY DIMINISHED ESPECIALLY OVER THE LOWER LOBES. NO WHEEZES OR CREPITATIONS ARE HEARD Cardio Palpation: PMI not normal (NOT PALPABLE) Rate: regular rate Rhythm: regular rhythm Heart sounds: no gallops and no murmurs GI Palpation (GI): Soft to palpation, nontender, No hepatosplenomegaly present, no masses and Other GI palpation findings present (ABDOMEN IS GROSSLY OBESE AND PROTUBERANT) Auscultation: normal bowel sounds Back/Spine/Pelvis Thoracic/Lumbar Spine: thoracic and lumbar spine normal to inspection Skin General skin exam: no rashes or lesions noted Neuro General: patient oriented x3 and no focal motor deficits Cranial nerves: Yes CN's II-XII intact bilaterally Extrem General: Yes normal to inspection, Yes no clubbing, cyanosis or edema and Yes no calf tenderness Psych Appearance: grossly normal and well kempt Speech and movement: Normal speech and movement present Results Reviewed Results Reviewed: COMPLIANCE REPORT FOR THE LAST 30 NIGHTS IS REVIEWED. HE HAS USED 21/30 NIGHTS, 70%. HIS AVERAGE USE IT PER NIGHT IS 3 HOURS 3 MINUTES WHICH IS SUBOPTIMAL. PRESSURE 14 CM. THERE IS ONLY MINIMAL DEGREE OF AIR LEAK. RESIDUAL AHI 17.6 MOSTLY OBSTRUCTIVE HYPOPNEAS. Assessment & Plan Assessment & Plan (1) Morbid obesity: Comment: HE IS A CASE OF SUPER MORBID OBESITY, DEFINITELY A 100% HIGH RISK FOR SLEEP APNEA HE HAS NOT JOIN ANY WEIGHT MANAGEMENT PROGRAM YET. JUST TRYING TO START USING THE CPAP REGULARLY Code(s): E66.01 - Morbid (severe) obesity due to excess calories Category: Medical Plan: DISCUSSED ABOUT THE WEIGHT AND HE IS GOING TO JOIN SOME WEIGHT MANAGEMENT PROGRAM SOON HE SAY BECOMES USED TO THE CPAP AND BECOMES MORE ENERGETIC (2) Obstructive sleep apnea: Comment: HE IS A CONFIRMED CASE OF VERY VERY SEVERE OBSTRUCTIVE SLEEP APNEA WITH NOCTURNAL HYPOXEMIA UNDERWENT CPAP TITRATION STUDY IN THE SLEEP LAB AND WAS FOUND TO DO WELL WITH PRESSURE OF 14 CM. DID NOT NEED O2. HE IS USING CPAP WITH NASAL MASK WHICH HE FINDS MORE COMFORTABLE, WAKES UP AFTER USING THE MASK FOR 3 HOURS OR SO AND THEN CAN NOT GO BACK TO SLEEP. HE HAS ASKING IF HE COULD GET SOME ANXIOLYTIC MEDICINE TO RELAX AND WHICH WILL PROMOTE HIS SLEEP. Code(s): G47.33 - Obstructive sleep apnea (adult) (pediatric) Category: Medical Plan: REVIEWED THE COMPLIANCE WITH HIM. EDUCATED ABOUT THE PROPER COMPLIANCE AND PROPER USE OF CPAP. I WOULD PRESCRIBE LORAZEPAM 5 MG TO TAKE 1 PILL IN THE MIDDLE OF THE NIGHT IF HE WAKES UP AND CAN NOT GO BACK TO SLEEP. THIS WILL BE ONLY A TEMPORARY HELP FOR HIS SLEEP. THE PRESSURE IS INCREASED TO 16 CM, HE FEELS THAT HE IS NOT GETTING ENOUGH PRESSURE (3) Nocturnal hypoxemia: Comment: NOCTURNAL HYPOXEMIA RELATED TO SLEEP-RELATED HYPOVENTILATION. WITH THE USE OF CPAP THE HYPOXEMIA DID RESOLVE Code(s): G47.34 - Idiopathic sleep related nonobstructive alveolar hypoventilation Category: Medical Plan: DOES NOT NEED O2 WITH THE CPAP Medications: New lorazepam 0.5 mg PO BEDTIME PRN 14 tabs 2RF anxiety/INSOMNIA 14 days Coding Level of Care Code Est Pt Level 3 (82272) Diagnoses Morbid obesity E66.01 Obstructive sleep apnea G47.33 Nocturnal hypoxemia G47.34
== END 2024-12-16 16:20 | disposition home or self-care (01) ==
LOC: HO.HPS 15:48
PROVIDERS: PCP Nurse Practitioner Family; Visit Provider Internal Medicine
DX: E66.01 Morbid (severe) obesity due to excess calories (principal); G47.33 Obstructive sleep apnea (adult) (pediatric); G47.34 Idiopathic sleep related nonobstructive alveolar hypoventilation
CPT/HCPCS: 99213

== ENCOUNTER 2025-01-03 15:09 | Outpatient (REF) | payer OTHER, SELFPAY ==
[2025-01-03 16:23] LABS: Anion Gap 14 (12-20); Blood Urea Nitrogen 19 mg/dL (9-16); Calcium 9.3 mg/dL (8.4-10.2); Carbon Dioxide 24 mmol/L (22-29); Chloride 105 mmol/L (96-108); Estimated Glomerular Filt Rate > 60; Potassium 4.3 mmol/L (3.3-5.1); Sodium 139 mmol/L (135-145)
[2025-01-03 16:28] LABS: B Type Natriuretic Peptide < 10 pg/mL (<100)
== END 2025-01-03 15:10 | disposition home or self-care (01) ==
LOC: HO.LAB 15:09
PROVIDERS: Visit Provider Internal Medicine Cardiovascular Disease
DX: I11.0 Hypertensive heart disease with heart failure (principal); I50.9 Heart failure, unspecified; G47.33 Obstructive sleep apnea (adult) (pediatric); R09.02 Hypoxemia; R06.09 Other forms of dyspnea
CPT/HCPCS: 36415; 80048; 83880

== ENCOUNTER 2025-01-26 13:21 | Outpatient (AMB) | payer OTHER, SELFPAY ==
[2025-01-26 13:31] VITALS: BP 122/80; PULSE 80; O2SAT 94; BMI 65.9
--- NOTE | 2025-01-26 13:31 | MHC.OFFVIS ---
Vital Signs 01/26/25 13:31 Height 6 ft 2 in Weight 513 lb 10.833 oz BMI 65.9 BP 122/80 Blood Pressure Location Lt radial Position Sitting Pulse 80 Pulse Source Pulse Oximeter Pulse Oximetry (%) 94 Oxygen Delivery Method Room Air Intake Visit Reasons: Obstructive sleep apnea Intake Note: pt is here for follow up of DEMARIO, he has some questions on activity level, some coughing past few weeks, but cpap is getting better. 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 Allergies No Known Allergies Allergy (Verified 01/26/25 13:59) Medication List - Last Reconciled 01/26/25 by Jake Leone MD acetaminophen 1,500 mg PO DAILY PRN alprazolam 0.5 mg PO DAILY PRN blood pressure monitor (Blood Pressure Kit) As directed bumetanide 1 mg See Protocol PO DAILY carvedilol 3.125 mg PO BID empagliflozin (Jardiance) 10 mg PO DAILY lorazepam 0.5 mg PO BEDTIME PRN 14 days sacubitril-valsartan 97-103 mg (Entresto) 1 tab PO BID spironolactone 50 mg See Protocol PO DAILY Do you need a note to return to daycare/school/sports/work: No HPI HPI Obstructive sleep apnea: Details: THIS 34 YEARS OLD GENTLEMAN WITH SUPER MORBID OBESITY, CURRENT BMI 66, IS A CASE OF SEVERE OBSTRUCTIVE SLEEP APNEA WITH NOCTURNAL HYPOXEMIA. AFTER CPAP TITRATION IN THE SLEEP LAB HE HAS BEEN STARTED ON CPAP THERAPY WITH PRESSURE SETTING OF 16 CM USING NASAL MASK. HE IS VERY COMPLIANT AND ACTUALLY FEELS VERY HAPPY THAT HE IS USING THE CPAP. SLEEP QUALITY IS MUCH IMPROVED AND HE LIKES TO USE THE OXYGEN AT NIGHT. HE SAY IS DURING THE DAYTIME HE REMAINS ALERT AND ENERGETIC AND NOW HE IS ANXIOUS TO START SOME KIND. 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 HIS RECENT CT SCAN OF THE HEART/CORONARY/3D SCAN WAS DONE AT [facility] IN ADDITION TO CHANGES IN THE CORONARY ARTERIES IT ALSO DESCRIBED THAT HE HAS DILATED MAIN PULMONARY ARTERY THUS INDICATING POSSIBLE PULMONARY HYPERTENSION [facility] Medical History (Updated 01/26/25 @ 14:12 by Jake Leone MD) Pulmonary hypertension Nocturnal hypoxemia Family History Paternal Grandmother Heart failure Diabetes Father High blood pressure Social History Household Members: Spouse Housing: Apartment Do you presently have visiting nurse or other home services: No Alcohol intake: current Alcohol intake frequency: holidays/special occasions only Patient Tobacco Use Status: Current everyday Tobacco user Cigarette Packs Per Day: 0.25 Cigarettes Per Day: 6 Substance Use Type: Marijuana service: No Review of Systems Const All systems reviewed & are unremarkable except as noted in HPI and below Reports weakness Eyes Reports no additional complaints ENT Reports no additional complaints Card Reports dyspnea on exertion and Reports orthopnea Resp Reports as per HPI and Reports dyspnea on exertion GI Reports no additional complaints Reports no additional complaints Musc Reports no additional complaints Skin/Breast Reports system reviewed and no additional complaints, except as documented Neuro Reports weakness and Reports other (FEELING OF FATIGUE AND MENTAL FOG FOR THE LAST FEW YEARS.) Psych Reports depression (HISTORY OF DEPRESSION BUT IT IS BETTER WITHOUT ANY MEDICATION) Endo Reports no additional complaints Jeff/Lymph Reports no additional complaints Aller/Immun Reports no additional complaints Physical Exam Vital Signs: Last Vital Signs Pulse 80 01/26/25 13:31 BP 122/80 01/26/25 13:31 Pulse Ox 94 01/26/25 13:31 Oxygen Delivery Method Room Air 01/26/25 13:31 BMI result Body Mass Index 65.9 THIS GENTLEMAN IS PER MORBIDLY OBESE, WITH PROTRUDING ABDOMEN , WITH TRACE OF EDEMA OF THE LEGS. Const General: comfortable, no acute distress, alert and awake Orientation/consciousness: patient oriented x3 HEENT Head: Yes normal to inspection General nose exam: No nasal polyps present and No nasal discharge present Face and sinus: Yes sinuses nontender Mouth: oropharynx abnormals (NARROW AND CROWDED, MALLAMPATI CLASS 3) Throat: Yes posterior oropharynx normal Eyes General: appearance normal, both eyes and all related structures Neck Neck: Yes normal visual inspection, Yes no lymphadenopathy, Yes trachea midline, Yes no JVD and Yes other (NECK CIRCUMFERENCE 21 IN) Thyroid: Thyroid normal Chest Chest palpation & inspection: normal inspection of the chest, normal palpation of entire chest wall and no tenderness Resp Other: PERCUSSION NOTE IS NOT PERCEPTIBLE BECAUSE OF THE THICK CHEST WALL BREATH SOUNDS ARE GENERALLY DIMINISHED ESPECIALLY OVER THE LOWER LOBES. NO WHEEZES OR CREPITATIONS ARE HEARD Cardio Palpation: PMI not normal (NOT PALPABLE) Rate: regular rate Rhythm: regular rhythm Heart sounds: no gallops and no murmurs GI Palpation (GI): Soft to palpation, nontender, No hepatosplenomegaly present, no masses and Other GI palpation findings present (ABDOMEN IS GROSSLY OBESE AND PROTUBERANT) Auscultation: normal bowel sounds Back/Spine/Pelvis Thoracic/Lumbar Spine: thoracic and lumbar spine normal to inspection Skin General skin exam: no rashes or lesions noted Neuro General: patient oriented x3 and no focal motor deficits Cranial nerves: Yes CN's II-XII intact bilaterally Extrem General: Yes normal to inspection, Yes no clubbing, cyanosis or edema and Yes no calf tenderness Psych Appearance: grossly normal and well kempt Speech and movement: Normal speech and movement present Results Reviewed Results Reviewed: COMPLIANCE REPORT FOR THE LAST 30 NIGHTS IS REVIEWED AND HIS USAGE IS 30/30 NIGHTS, 100%. HE HAS BEEN USING 7 HOURS 42 MINUTES PER NIGHT WHICH IS GOOD. RESIDUAL AHI IS DOWN TO 1.8 INDICATING THAT HIS SLEEP APNEA IS FULLY TREATED. HE DOES HAVE SOME AIR LEAK MAXIMUM 94 L BUT IT IS NOT CAUSING ANY DISCOMFORT TO HIM. HE IS USING O2 1 L/MINUTE AT NIGHT Assessment & Plan Assessment & Plan (1) Morbid obesity: Comment: HE IS A CASE OF SUPER MORBID OBESITY, DEFINITELY A 100% HIGH RISK FOR SLEEP APNEA HE HAS NOT JOINED ANY WEIGHT MANAGEMENT PROGRAM YET. JUST TRYING TO START USING THE CPAP REGULARLY Code(s): E66.01 - Morbid (severe) obesity due to excess calories Category: Medical Plan: COMMENDED FOR GOOD COMPLIANCE, AND ADVISED TO KEEP ON USING THE CPAP REGULARLY , IT WILL BE BETTER IF HE USES 7-8 HOURS PER NIGHT (2) Obstructive sleep apnea: Comment: HE IS A CONFIRMED CASE OF VERY VERY SEVERE OBSTRUCTIVE SLEEP APNEA WITH NOCTURNAL HYPOXEMIA UNDERWENT CPAP TITRATION STUDY IN THE SLEEP LAB AND WAS FOUND TO DO WELL WITH PRESSURE OF 16 CM. HE IS USING CPAP WITH NASAL MASK WHICH HE FINDS MORE COMFORTABLE, HIS USAGE TIME HAS DEFINITELY INCREASED TO 7 HOURS AND MORE, AND HE FEELS BETTER Code(s): G47.33 - Obstructive sleep apnea (adult) (pediatric) Category: Medical Plan: COMMENDED FOR GOOD COMPLIANCE AND ADVISED TO KEEP ON USING THE CPAP EVERY NIGHT, AT LEAST FOR 7-8 HOURS PER NIGHT. (3) Nocturnal hypoxemia: Comment: NOCTURNAL HYPOXEMIA RELATED TO SLEEP-RELATED HYPOVENTILATION. WITH THE USE OF CPAP HE STILL HAD SOME RESIDUAL HYPOXEMIA AND REQUIRED O2 1 L/MINUTE. Code(s): G47.34 - Idiopathic sleep related nonobstructive alveolar hypoventilation Category: Medical Plan: CONTINUE TO USE O2 AT NIGHT. WITH THE FINDING OF DILATED PULMONARY ARTERY SUGGESTING PULMONARY HYPERTENSION I THINK IF HE USES 2 L/MINUTE WILL BE BETTER. (4) Pulmonary hypertension: Comment: CT SCAN OF THE HEART AND CORONARY ANGIOGRAPHY, IN SHOW THAT HE HAS DILATED PULMONARY ARTERIES, SUGGESTING PULMONARY HYPERTENSION. WITH HIS SUPER MORBID OBESITY AND LONGSTANDING OBSTRUCTIVE SLEEP APNEA/NOCTURNAL HYPOXEMIA, PULMONARY HYPERTENSION IS ALMOST EXPECTED. Code(s): I27.20 - Pulmonary hypertension, unspecified Category: Medical Plan: I WOULD REQUEST THE CARDIOLOGY SERVICE TO ARRANGE FOR ECHOCARDIOGRAM IN THE MEANTIME HE SHOULD INCREASE O2 TO 2 L/MINUTE AT NIGHT. Coding Level of Care Code Est Pt Level 4 (40726) Diagnoses Morbid obesity E66.01 Obstructive sleep apnea G47.33 Nocturnal hypoxemia G47.34 Pulmonary hypertension I27.20
== END 2025-01-26 14:02 | disposition home or self-care (01) ==
LOC: HO.HPS 13:21
PROVIDERS: PCP Nurse Practitioner Family; Visit Provider Internal Medicine
DX: E66.01 Morbid (severe) obesity due to excess calories (principal); G47.33 Obstructive sleep apnea (adult) (pediatric); G47.34 Idiopathic sleep related nonobstructive alveolar hypoventilation; I27.20 Pulmonary hypertension, unspecified
CPT/HCPCS: 99214

== ENCOUNTER 2025-02-15 14:24 | Outpatient (AMB) | payer OTHER, SELFPAY ==
[2025-02-15 14:31] VITALS: BP 134/74; PULSE 94; BMI 66.4
--- NOTE | 2025-02-15 14:31 | MHC.OFFVIS ---
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 Accompanied by: Self / Same As Patient Allergies No Known Allergies Allergy (Verified 02/15/25 14:35) Medication List - Last Reconciled 02/15/25 by Michele Santos NP acetaminophen 1,500 mg PO DAILY PRN alprazolam 0.5 mg PO DAILY PRN blood pressure monitor (Blood Pressure Kit) As directed bumetanide 1 mg See Protocol PO DAILY carvedilol 3.125 mg PO BID empagliflozin (Jardiance) 10 mg PO DAILY sacubitril-valsartan 97-103 mg (Entresto) 1 tab PO BID sertraline (Zoloft) 25 mg PO DAILY spironolactone 50 mg See Protocol PO DAILY HPI Comments Details: This is a 34-year-old male patient coming in for a follow-up visit. Patient with a history of nonischemic cardiomyopathy, hypertension, sleep apnea, and morbid obesity he was previously in the hospital back in September for heart failure and elevated blood pressure where patient was treated with IV diuretics and antihypertensives. Given his decreased ejection fraction between 40-45%, and multiple risk factors, patient underwent coronary CTA to assess for ischemic disease. Today, patient is reporting compliance with all his medications and denying any cardiac symptoms of exertional chest pain, shortness of breath, palpitations, dizziness, orthopnea, PND, leg edema, presyncope, or syncope. Patient unfortunately continues to smoke. [facility] Medical History Acute decompensated heart failure Pulmonary hypertension Nocturnal hypoxemia Family History Paternal Grandmother Heart failure Diabetes Father High blood pressure Social History Household Members: Spouse Housing: Apartment Do you presently have visiting nurse or other home services: No Alcohol intake: current Alcohol intake frequency: holidays/special occasions only Patient Tobacco Use Status: Current everyday Tobacco user Cigarette Packs Per Day: 0.25 Cigarettes Per Day: 6 Substance Use Type: Marijuana service: No Review of Systems Const Denies daytime sleepiness, Denies difficulty sleeping, Denies snoring, Denies stops breathing during sleep and Denies weakness Card Reports chest pain, Denies rapid heart rate, Denies claudication, Denies leg edema, Denies lightheadedness, Reports palpitations, Reports dyspnea, Denies dyspnea on exertion, Denies orthopnea, Denies paroxysmal nocturnal dyspnea and Denies slow heart rate Resp Denies cough, Reports dyspnea, Denies dyspnea on exertion and Denies snoring GI Reports no additional complaints, Denies hematochezia, Denies change in stool character and Denies dyspepsia Musc Denies abnormal gait, Denies muscle weakness and Denies numbness Neuro Denies abnormal gait, Denies numbness and Denies weakness Endo Reports palpitations Physical Exam Vital Signs: Last Vital Signs Pulse 94 02/15/25 14:31 BP 134/74 02/15/25 14:31 BMI result Body Mass Index 66.4 Const General: cooperative, healthy appearing, comfortable and no acute distress Orientation/consciousness: patient oriented x3 HEENT Head: Yes normal to inspection Neck Neck: Yes normal visual inspection, Yes trachea midline and Yes supple Chest Chest palpation & inspection: normal inspection of the chest Resp Effort & Inspection: normal respiratory effort Auscultation: clear to auscultation bilaterally, no crackles, no rales, no rhonchi and no wheezes Cardio Jugular venous distension: no JVD Palpation: normal PMI Rate: regular rate Rhythm: regular rhythm Heart sounds: S1 normal heart sound present, S2 normal heart sound present, no click, no gallops, no murmurs and no rubs Peripheral pulses: Peripheral pulses 2+ throughout GI Inspection: Yes normal to inspection Palpation (GI): Soft to palpation Auscultation: normal bowel sounds Skin General skin exam: no rashes or lesions noted Neuro General: patient oriented x3 Extrem General: Yes normal to inspection, No no pedal edema and No calf tenderness Psych Appearance: grossly normal Mental Status: mental status grossly normal Speech and movement: Normal speech and movement present Assessment & Plan Assessment & Plan (1) Nonischemic cardiomyopathy: Code(s): I42.8 - Other cardiomyopathies Category: Medical Plan: 10/13/2024-echo study had shown a [id number] LV systolic dysfunction with an ejection fraction between 40-45% with severe LVH and pseudo normal filling pattern. Patient was hospitalized for heart failure symptoms back in September and was diuresed. Patient had longstanding hypertension not on medications. For an ischemic workup, patient underwent coronary CTA on 01/06/2025 that showed no obvious calcified plaque in the arteries however noncalcified plaque can not be ruled out. Also showed a dilated pulmonary artery suggesting pulmonary hypertension. Clinically stable and euvolemic. We will be repeating an echo to assess for improvement in his ejection fraction as well as assessing for pulmonary hypertension. Continue current neurohormonal guideline directed medical therapy- Bumex, spironolactone, Entresto, Jardiance, and carvedilol. Given his elevated heart rate at times at home, we will increase the carvedilol to 6.25 mg b.i.d.. Labs are stable and will be monitored periodically. We will also refer patient out to cardiac rehab. (2) Hypertension: Code(s): I10 - Essential (primary) hypertension Category: Medical Plan: Blood pressure today is well-controlled. Continue current regimen with a blood pressure goal less than 130/80. Advised monitoring blood pressures at home and maintaining a log of it. (3) Obstructive sleep apnea: Comment: HE IS A CONFIRMED CASE OF VERY VERY SEVERE OBSTRUCTIVE SLEEP APNEA WITH NOCTURNAL HYPOXEMIA UNDERWENT CPAP TITRATION STUDY IN THE SLEEP LAB AND WAS FOUND TO DO WELL WITH PRESSURE OF 16 CM. HE IS USING CPAP WITH NASAL MASK WHICH HE FINDS MORE COMFORTABLE, HIS USAGE TIME HAS DEFINITELY INCREASED TO 7 HOURS AND MORE, AND HE FEELS BETTER Code(s): G47.33 - Obstructive sleep apnea (adult) (pediatric) Category: Medical Plan: 10/12/2024-patient underwent a sleep study that showed very very severe obstructive sleep apnea. Continue CPAP therapy. Followed by pulmonology. (4) Morbid obesity: Comment: HE IS A CASE OF SUPER MORBID OBESITY, DEFINITELY A 100% HIGH RISK FOR SLEEP APNEA HE HAS NOT JOINED ANY WEIGHT MANAGEMENT PROGRAM YET. JUST TRYING TO START USING THE CPAP REGULARLY Code(s): E66.01 - Morbid (severe) obesity due to excess calories Category: Medical Plan: BMI at 66.4. Patient states he has been trying to stay active and has a adapter to a better diet however has been having a hard time for many years in regards to weight loss. Patient states that he explored weight management medications with his PCP however nothing came of this. Patient was frustrated around this. We will start him on Ozempic to help him with the his weight loss to overall improve his cardiovascular health. We will also refer patient out to bariatric surgery for further management. Patient in agreement of this plan. (5) Smoker: Code(s): F17.200 - Nicotine dependence, unspecified, uncomplicated Category: Social Hx Plan: Emphasized on need for smoking cessation. Patient verbalizes understanding and is planning on quitting. Advised heart healthy diet, regular exercise, weight loss, med compliance, and aggressive management of vascular risk factors. Follow up in [address] Herrera. In the interim, patient will call the office with any concerns or change in symptoms. This note was generated using voice recognition software. While every effort has been made to ensure accuracy and proper technical support intern, there may be occasional errors that could affect the content or meaning of the described symptoms. Orders: Orders Cardiac Rehab Today I42.8 - Other cardiomyopathies, I50.9 - Heart failure, unspecified Basic Metabolic Panel Today I42.8 - Other cardiomyopathies Liver Panel Today I42.8 - Other cardiomyopathies CA echo transthoracic complete Today I42.8 - Other cardiomyopathies Referrals Bariatric Surgery Referral E66.01 - Morbid (severe) obesity due to excess calories Medications: New semaglutide (Ozempic) for 4 weeks 0.25 mg (0.368 mL) subcut QWEEK 3 mL 4RF Changed From carvedilol must administer with a meal/food 3.125 mg PO BID 90 tabs 3RF To carvedilol must administer with a meal/food 6.25 mg (2 x 3.125 mg) PO BID 90 tabs 3RF Coding Level of Care Code Est Pt Level 4 (93309) Complex EM visit Add On G2211 Diagnoses Nonischemic cardiomyopathy I42.8 Hypertension I10 Obstructive sleep apnea G47.33 Morbid obesity E66.01 Smoker F17.200 Time Spent (min) 34 Comment Time spent in reviewing the chart, test results, assessment, counseling and documentation.
== END 2025-02-15 15:15 | disposition home or self-care (01) ==
LOC: HO.HCS 14:24
PROVIDERS: PCP Nurse Practitioner Family
DX: I42.8 Other cardiomyopathies (principal); I10 Essential (primary) hypertension; G47.33 Obstructive sleep apnea (adult) (pediatric); E66.01 Morbid (severe) obesity due to excess calories; F17.200 Nicotine dependence, unspecified, uncomplicated
CPT/HCPCS: 99214; G2211

== ENCOUNTER → 2025-03-10 08:42 | Outpatient (REF) | payer OTHER, SELFPAY ==
--- NOTE | 2025-03-10 08:46 | CA_ITS ---
Transthoracic Echocardiogram Patient (Last, First, Middle): Yadiel Ayers M Gender: M Date of : 1990 Age: 34 Procedure Date: 03/10/2025 Procedure Type: Transthoracic Echocardiogram Location: OP Height: 187.96 cm Weight: 234.51 kg BSA: 3.25 m2 Heart Rate: 61 bpm BP: 134 / 74 mmHg [place] Finisher: SB Referring MD: Michele Santos NP Symptoms: I42.8 - Other cardiomyopathies Study Quality: Technically Difficult ECG Rhythm: Sinus Conclusions: - 1. Technically limited study due to body habitus 2. Normal LV ejection fraction of 60 65% 3. Limited evaluation of cardiac valves Findings Procedure Information Contrast agent, definity, is being given per protocol without apparent complications. The quality of the study was technically difficult. The study quality is limited by patients body habitus. Left Ventricle Normal left ventricular size, thickness, and systolic function. The visually estimated ejection fraction is between 60-65%. Spectral Doppler is indicative of a normal filling pattern. Right Ventricle The right ventricle was not well visualized. Atria The left atrium was not well visualized. Interatrial shunt cannot be excluded. The right atrium was not well visualized. Aortic Valve The aortic valve was not well visualized. There is no aortic valve stenosis. Mitral Valve The mitral valve was not well visualized. There is no mitral valve stenosis. Pulmonic Valve The pulmonic valve was not well visualized. Tricuspid Valve The tricuspid valve was not well visualized. Tricuspid regurgitation envelope is inadequate for calculation of right ventricular systolic pressure. Great Vessels The aorta was not well visualized. The pulmonary artery was not well visualized. Venous The inferior vena cava is normal in size. Pericardium/Pleural The pericardium was not well visualized. Prior Study Comparison Changes noted compared to prior study dated: 10/13/2024. LV systolic function has normalized Measurements 2D Linear Measurements LVOT Diam: 2.70 3.0+(-)1.3 cm 2D Systolic Function EF 4C: 67.90 >55% Mitral Valve MV Pk E: 0.94 MV PK A: 0.44 MV Decel Time: 187.00 E/A: 2.10 E'Lateral: 11.60 E'Medial: 9.14 E/E' Med: 10.30 E/E' Lat: 8.10 PHT: 55.00 MVA PHT: 4.00 Decel Reeves: 5.03 Aortic Valve AoV Pk Darrin: 1.42 AoV Mn Darrin: 0.92 AoV VTI: 0.29 AoV Pk Grad: 8.00 Aov Mn Grad: 4.00 JAI Cont.VTI: 2.42 LVOT LVOT Pk Darrin: 0.69 LVOT Mn Darrin: 0.44 LVOT VTI: 0.12 LVOT Pk Grad: 2.00 LVOT Mn Grad: 1.00 LVOT Diam: 2.70 LVOT Area: 5.73 Diastolic Function MV Pk E: 0.94 MV Pk A: 0.44 E/A: 2.10 E'Medial: 9.14 E/E' Med: 10.30 E' Laterial: 11.60 E/E' Lat: 8.10 Tricuspid Valve RA Press: 8.00 Great Vessels Aorta Sinus of Valsalva: 3.50 2.0-3.5 cm Ao Asc: 2.80 2.1-3.4 cm Ao Arch: 2.90 Updated in Other Vendor System with Status of Final Scotty Herrera MD electronically signed on 03/11/2025 12:47:48 PM with status of Final
== END ==
LOC: HO.CARD 08:42
PROVIDERS: PCP Nurse Practitioner Family
DX: I42.8 Other cardiomyopathies (principal)
CPT/HCPCS: 93306; Q9957

== ENCOUNTER → 2025-03-10 08:46 | Outpatient (BNV) | payer OTHER, SELFPAY | PROVIDERS: PCP Nurse Practitioner Family; Visit Provider Internal Medicine Cardiovascular Disease | DX: I42.8 Other cardiomyopathies (principal) | CPT/HCPCS: 93306 ==

== ENCOUNTER 2025-03-30 08:10 | Outpatient (AMB) | payer OTHER, SELFPAY ==
--- NOTE | 2025-03-30 11:55 | MHC.OFFVISWM ---
VS Expanded 03/30/25 12:18 Height 6 ft 2 in Weight 500 lb 2 oz BMI 64.2 Body Fat % 51.5 Body Fat Mass 257.6 Fat Free Mass 242.6 Visceral Fat Rating 43 Body Water % 38 Body Water Mass 189.8 Basal Metabolic Rate/Score 3,752 Intake Visit Reasons: [employer] SW[employer] BMI 64.2 Allergies No Known Allergies Allergy (Verified 03/30/25 11:55) Medication List - Last Reconciled 03/30/25 by Christiano Evans MD acetaminophen 1,500 mg PO DAILY PRN blood pressure monitor (Blood Pressure Kit) As directed bumetanide 1 mg See Protocol PO DAILY bupropion HCl XL 450 mg PO DAILY carvedilol 6.25 mg PO BID 90 days empagliflozin (Jardiance) 10 mg PO DAILY ergocalciferol (vitamin D2) 1,250 mcg PO QWEEK nicotine 1 patch topical DAILY sacubitril-valsartan 97-103 mg (Entresto) 1 tab PO BID sertraline 50 mg PO DAILY spironolactone 50 mg PO DAILY trazodone 50 mg PO BEDTIME PRN HPI HPI [employer] INS[employer] SWL BMI 64.2: Details: Start time: 11.51am, End time: 12.41pm ?I spent 45 minutes speaking with the patient on the phone plus an additional 5 minutes reviewing and updating records for a total of 50 minutes HPI Comments Details: Previous weight loss efforts: self diets and exercise Wakes up: 8am, Sleeps: 11pm Breakfast: skips Lunch: skips most often (sandwich occasionally) Dinner: 5-7pm (grenadian onion soup) Snacks: none Exercise: none Beverages: Coffee: 1/wk, Tea: none, Soda: none, Juice: none, ETOH: none PFSH Medical History (Updated 03/30/25 @ 12:07 by Christiano Evans MD) Insomnia Anxiety Depression DJD (degenerative joint disease) Non-insulin dependent type 2 diabetes mellitus Acute decompensated heart failure Pulmonary hypertension Nocturnal hypoxemia Surgical History (Updated 03/24/25 @ 08:01 by Tessa Brizuela CMA) Hx of wisdom tooth extraction History of lingual frenotomy History of ankle surgery Family History (Updated 03/24/25 @ 08:03 by Tessa Brizuela CMA) Paternal Grandmother Heart failure Diabetes Father High blood pressure Maternal Grandmother Dementia Mother Lupus Emphysema lung Fibromyalgia A-fib Social History Household Members: Spouse Housing: Apartment Do you presently have visiting nurse or other home services: No Alcohol intake: current Alcohol intake frequency: holidays/special occasions only Patient Tobacco Use Status: Current everyday Tobacco user Cigarette Packs Per Day: 0.25 Cigarettes Per Day: 6 Substance Use Type: Marijuana service: No Telehealth Telehealth Telehealth Platform: Telephone Location of provider rendering services: practice address Location of patient: address on file Patient Identification confirmed using: Name, : Yes Telehealth method: voice only Patient verbally consented to treatment: Yes Patient verbally consented to billing insurance company: Yes Patient informed of any privacy concerns related to visit: Yes Minutes spent on Phone/Video with Pt.: 50 Assessment & Plan Assessment & Plan (1) Morbid obesity: Comment: HE IS A CASE OF SUPER MORBID OBESITY, DEFINITELY A 100% HIGH RISK FOR SLEEP APNEA HE HAS NOT JOINED ANY WEIGHT MANAGEMENT PROGRAM YET. JUST TRYING TO START USING THE CPAP REGULARLY Code(s): E66.01 - Morbid (severe) obesity due to excess calories Category: Medical Plan: 1.? Plan for lap sleeve gastrectomy. If diaphragmatic or ventral hernias are present at time of surgery, these will be repaired laparoscopically as well. I emphasized the importance of close follow-up, adherence to instructions and good communication. The surgery does not replace the need to change your lifestlyle which is the cause of the obesity problem. The surgery provides the motivation to try again to change your lifestyle, it reduces the appetite and make the transition to a better lifestyle easier and doubles the amount of weight you would lose compared to doing the lifestyle change without the surgery. You will need to be on a liquid diet with protein shakes for 2 weeks before surgery to maximize weight loss and boost your nutritional status to recover better from surgery and also for the first two weeks after surgery to let the stomach heal before we introduce other foods. After the first 2 weeks we will introduce protein bars and soft foods like scrambled eggs, cottage cheese and yogurt and after the 6th week will introduce meat, fish and cooked vegetables in small amounts. Over time you should be able to eat everything in small amounts. Side effects like nausea, vomiting, heartburn or abdominal pain are not common in the practice unless you are not following in the practice. This operation requires lifetime commitment to following in our practice and communication with me. You will much less weight and experience side effects if you don?t communicate or not following in the practice. Complications are rare and in our practice is about 1/10 of the national average. However, you can develop bleeding that may require transfusion (hasn?t happened for year in the practice), you may from complications (we did not have any deaths in the practice) and infections. Infections are usually a result of breakdown in communication or not understanding or following directions correctly. They are difficult to treat, they can happen during the first 6 weeks, they may require to be in the hospital for weeks or even months, not being able to eat by mouth and you may have drains and surgeries to try and correct the issue. Other risks and complications include possible conversion to an open procedure, leaks, small bowel obstruction, blood clots, cardiac, or pulmonary complications, as custodial complications such as ulcers, insufficient weight loss and vitamin deficiencies. 2. Nutritional counseling. Start with one CELEBRATE REBUILD protein (buy online with the link I gave you) shakes (TWO scoops in 8oz low fat or lactose-free milk) at 9am-11am, 1 protein bar (CELEBRATE protein bars, buy at hospital's gift shop, buy online with the link I gave you) at 12pm-2pm, another CELEBRATE REBUILD protein shakes (TWO scoops in 8oz low fat or lactose-free milk) at 3pm-5pm, dinner at 6pm (14 forks of protein and 14 forks of salad/vegetables), another Celebrate protein bar at 8pm-10pm. So you do 2 protein shakes, 2 protein bars and one meal per day. Meal to include lean meat (beef, fish, pork, turkey, chicken), or [place] yogurt, or egg whites, or beans with a salad with olive oil and fruits (berries, pears, apples, kiwi). Avoid salt, breads, potatoes, rice, pasta, desserts. 3. Each shake would be drunk slowly, like coffee in a period of 2 hours. 4. Cut each bar in 4 pieces and eat each piece in 30min ?to make each bar last 2 hours. 5. I emphasized the importance of measuring accurately the food portion and measure it when serving the food in plate 6. The meal portions include 14 full-size forks of meat and 14 full-size forks of salad. You always eat the meat portion but you can replace up to 7 forks for salad/vegetables with rice, potatoes or pasta, or a fruit ?if you like. The less you do it the better weight loss will be. 7. One full-size fork is what it can be scooped on the fork without falling aside and not what can be bit with the fork. Use regular forks like those you find in a typical restaurant. 8.? Please buy the body composition scale we discussed and send me weight measurements as soon as possible and then once a week. Always include your diet and exercise plan. 9. Start walking outside daily, tracking calories with a goal of 300 calories per day, daily. Goal is to burn 2000 calories per week on exercise, which means either 300 calories daily, or 400 calories 5 days per week, or 500 calories 4 days per week, or 650 calories 3 days per week. 10. The best choice would be to purchase a stationary bike at home that can track calories. Let me know if you do so I can give you an exercise plan. 11. Goal is to lose at least 1.5-2lbs per week 12. Goal to lose at least 20% of your weight before surgery, which is about 100lbs. Ultimate weight goal: 400lbs or less before surgery 13. Please follow the diet plan exactly without any change. If you don't like something about the plan or you feel hungry you need to communicate with me so I can help you revise the plan. You should not change the plan yourself 14. I ordered a medication to help you with the diabetes which is called Aron. My office will try to authorize it. Please let me know when you receive it so I can give you a meal and exercise plan. Common side effects include nausea, vomiting, constipation, diarrhea, abdominal pain. Please let me know if you develop any of these symptoms. 15. Emphasized the importance of checking his blood glucose levels frequently and daily and to report to me any blood glucose below 100, so I can adjust his insulin and prevent hypoglycemic episodes 16. Emphasized the importance of monitoring the blood pressure daily in am when wakes up and two more times throughout the day. If systolic blood pressure is 110 mmHg, or less I explained to the patient that needs to notify me. Also I explained the symptoms of orthostatic hypotension (dizziness and lightheadedness) for which the patient also needs to notify me. Medications: New tirzepatide (Mounjaro) for 4 weeks 2.5 mg (0.5 mL) subcut QWEEK 2 mL 0RF E11.9 - Type 2 diabetes mellitus without complications
[2025-03-30 12:18] VITALS: BMI 64.2
== END 2025-03-30 12:42 | disposition home or self-care (01) ==
LOC: HO.HBS 08:10
PROVIDERS: PCP Nurse Practitioner Family; Visit Provider Surgery
DX: E66.01 Morbid (severe) obesity due to excess calories (principal)
CPT/HCPCS: 99204

== ENCOUNTER 2025-04-04 14:26 | Outpatient (AMB) | payer OTHER, SELFPAY ==
[2025-04-04 14:36] VITALS: BP 122/78; PULSE 85; O2SAT 97; BMI 66.1
--- NOTE | 2025-04-04 14:36 | A.OFFVIS_ITS ---
Vital Signs 04/04/25 14:36 Height 6 ft 2 in Weight 515 lb BMI 66.1 BP 122/78 Blood Pressure Location Lt radial Position Sitting Pulse 85 Pulse Source Pulse Oximeter Pulse Oximetry (%) 97 Oxygen Delivery Method Room Air Intake Visit Reasons: Obstructive sleep apnea Intake Note: pt is here for follow up of cpap and is doing well with cpap using it nightly. 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: No Allergies No Known Allergies Allergy (Verified 04/04/25 14:42) Medication List - Last Reconciled 04/04/25 by Jake Leone MD acetaminophen 1,500 mg PO DAILY PRN blood pressure monitor (Blood Pressure Kit) As directed bumetanide 1 mg See Protocol PO DAILY bupropion HCl XL 450 mg PO DAILY carvedilol 6.25 mg PO BID 90 days empagliflozin (Jardiance) 10 mg PO DAILY ergocalciferol (vitamin D2) 1,250 mcg PO QWEEK nicotine 1 patch topical DAILY sacubitril-valsartan 97-103 mg (Entresto) 1 tab PO BID sertraline 50 mg PO DAILY spironolactone 50 mg PO DAILY tirzepatide (Mounjaro) 2.5 mg (0.5 mL) subcut QWEEK trazodone 50 mg PO BEDTIME PRN Do you need a note to return to daycare/school/sports/work: No HPI HPI Obstructive sleep apnea: Details: THIS 34 YEARS OLD GENTLEMAN WHO IS SUPER MORBIDLY OBESE CURRENT BMI 66, AND KNOWN TO HAVE SEVERE OBSTRUCTIVE SLEEP APNEA PLUS NOCTURNAL HYPOXEMIA. HE COMES FOR FOLLOW-UP AFTER STARTING TO USE THE CPAP. HE IS USING CPAP RELIGIOUSLY EVERY NIGHT AND ADMITS THAT HIS SLEEP IS DEFINITELY MUCH BETTER. HE IS GETTING USED TO THE CPAP BUT HAS BEEN USING 100% OF THE NIGHTS UP TO 8 HOURS AND 15 MINUTE. HE IS STILL OUT OF WORK, BECAUSE OF HIS CONGESTIVE HEART FAILURE. HE HAS JOIN THE WEIGHT MANAGEMENT PROGRAM. [facility] Medical History (Updated 04/04/25 @ 15:04 by Jake Leone MD) Insomnia Anxiety Depression DJD (degenerative joint disease) Non-insulin dependent type 2 diabetes mellitus Acute decompensated heart failure Pulmonary hypertension Nocturnal hypoxemia Surgical History (Updated 03/24/25 @ 08:01 by Tessa Brizuela CMA) Hx of wisdom tooth extraction History of lingual frenotomy History of ankle surgery Family History (Updated 03/24/25 @ 08:03 by Tessa Brizuela CMA) Paternal Grandmother Heart failure Diabetes Father High blood pressure Maternal Grandmother Dementia Mother Lupus Emphysema lung Fibromyalgia A-fib Social History (Updated 04/04/25 @ 14:43 by Autumn Jang Christopher) Household Members: Spouse Housing: Apartment Do you presently have visiting nurse or other home services: No Alcohol intake: current Alcohol intake frequency: holidays/special occasions only Patient Tobacco Use Status: Current everyday Tobacco user Cigarette Packs Per Day: 0.5 Cigarettes Per Day: 10 Substance Use Type: Marijuana service: No Review of Systems Const All systems reviewed & are unremarkable except as noted in HPI and below Reports weakness Eyes Reports no additional complaints ENT Reports no additional complaints Card Reports dyspnea on exertion and Reports orthopnea Resp Reports as per HPI and Reports dyspnea on exertion GI Reports no additional complaints Reports no additional complaints Musc Reports no additional complaints Skin/Breast Reports system reviewed and no additional complaints, except as documented Neuro Reports weakness and Reports other (FEELING OF FATIGUE AND MENTAL FOG FOR THE LAST FEW YEARS.) Psych Reports depression (HISTORY OF DEPRESSION BUT IT IS BETTER WITHOUT ANY MEDICATION) Endo Reports no additional complaints Jeff/Lymph Reports no additional complaints Aller/Immun Reports no additional complaints Physical Exam Vital Signs: Last Vital Signs Pulse 85 04/04/25 14:36 BP 122/78 04/04/25 14:36 Pulse Ox 97 04/04/25 14:36 Oxygen Delivery Method Room Air 04/04/25 14:36 BMI result Body Mass Index 66.1 THIS GENTLEMAN IS PER MORBIDLY OBESE, WITH PROTRUDING ABDOMEN , WITH TRACE OF EDEMA OF THE LEGS. Const General: comfortable, no acute distress, alert and awake Orientation/consciousness: patient oriented x3 HEENT Head: Yes normal to inspection General nose exam: No nasal polyps present and No nasal discharge present Face and sinus: Yes sinuses nontender Mouth: oropharynx abnormals (NARROW AND CROWDED, MALLAMPATI CLASS 3) Throat: Yes posterior oropharynx normal Eyes General: appearance normal, both eyes and all related structures Neck Neck: Yes normal visual inspection, Yes no lymphadenopathy, Yes trachea midline, Yes no JVD and Yes other (NECK CIRCUMFERENCE 21 IN) Thyroid: Thyroid normal Chest Chest palpation & inspection: normal inspection of the chest, normal palpation of entire chest wall and no tenderness Resp Other: PERCUSSION NOTE IS NOT PERCEPTIBLE BECAUSE OF THE THICK CHEST WALL BREATH SOUNDS ARE GENERALLY DIMINISHED ESPECIALLY OVER THE LOWER LOBES. NO WHEEZES OR CREPITATIONS ARE HEARD Cardio Palpation: PMI not normal (NOT PALPABLE) Rate: regular rate Rhythm: regular rhythm Heart sounds: no gallops and no murmurs GI Palpation (GI): Soft to palpation, nontender, No hepatosplenomegaly present, no masses and Other GI palpation findings present (ABDOMEN IS GROSSLY OBESE AND PROTUBERANT) Auscultation: normal bowel sounds Back/Spine/Pelvis Thoracic/Lumbar Spine: thoracic and lumbar spine normal to inspection Skin General skin exam: no rashes or lesions noted Neuro General: patient oriented x3 and no focal motor deficits Cranial nerves: Yes CN's II-XII intact bilaterally Extrem General: Yes normal to inspection, Yes no clubbing, cyanosis or edema and Yes no calf tenderness Psych Appearance: grossly normal and well kempt Speech and movement: Normal speech and movement present Results Reviewed Results Reviewed: COMPLIANCE REPORT FOR THE LAST 30 NIGHTS IS REVIEWED AND HE HAS USED 100% OF THE NIGHTS. AVERAGE USAGE PER NIGHT 8 HOURS 14 MINUTES. THERE IS SOME AIR LEAK BUT RESIDUAL AHI ONLY 0.9 Assessment & Plan Assessment & Plan (1) Morbid obesity: Comment: HE IS A CASE OF SUPER MORBID OBESITY, DEFINITELY A 100% HIGH RISK FOR SLEEP APNEA HE HAS NOW JOINED WEIGHT MANAGEMENT PROGRAM . NO SIGNIFICANT IMPROVEMENT YET. Code(s): E66.01 - Morbid (severe) obesity due to excess calories Category: Medical Plan: ENCOURAGED THAT HE SHOULD STICK WITH WEIGHT MANAGEMENT PROGRAM. (2) Obstructive sleep apnea: Comment: HE IS A CONFIRMED CASE OF VERY VERY SEVERE OBSTRUCTIVE SLEEP APNEA WITH NOCTURNAL HYPOXEMIA UNDERWENT CPAP TITRATION STUDY IN THE SLEEP LAB AND WAS FOUND TO DO WELL WITH PRESSURE OF 16 CM. HE IS USING CPAP WITH NASAL MASK WHICH HE FINDS MORE COMFORTABLE, HIS USAGE TIME HAS DEFINITELY INCREASED, NOW USING FOR MORE THAN 8 HOURS PER NIGHT, AND CONTINUES TO FEEL BETTER. Code(s): G47.33 - Obstructive sleep apnea (adult) (pediatric) Category: Medical Plan: COMMENDED FOR GOOD COMPLIANCE AND ADVISED TO KEEP ON USING CPAP MUCH HE CAN EVERY NIGHT. HE NEEDS A NEW HOSE AND ADAPTER FOR THE O2 FOR WHICH WE ARE REQUESTING THE [facility] [place] TO PROVIDE HIM. (3) Nocturnal hypoxemia: Comment: NOCTURNAL HYPOXEMIA RELATED TO SLEEP-RELATED HYPOVENTILATION. WITH THE USE OF CPAP HE STILL HAD SOME RESIDUAL HYPOXEMIA AND REQUIRED O2 1 L/MINUTE. Code(s): G47.34 - Idiopathic sleep related nonobstructive alveolar hypoventilation Category: Medical Plan: CONTINUE TO USE O2 1 L/MINUTE ALONG WITH THE CPAP AT NIGHT Coding Level of Care Code Est Pt Level 3 (03709) Diagnoses Morbid obesity E66.01 Obstructive sleep apnea G47.33 Nocturnal hypoxemia G47.34
== END 2025-04-04 15:00 | disposition home or self-care (01) ==
LOC: HO.HPS 14:26
PROVIDERS: PCP Nurse Practitioner Family; Visit Provider Internal Medicine
DX: E66.01 Morbid (severe) obesity due to excess calories (principal); G47.33 Obstructive sleep apnea (adult) (pediatric); G47.34 Idiopathic sleep related nonobstructive alveolar hypoventilation
CPT/HCPCS: 99213

== ENCOUNTER 2025-04-13 09:49 | Outpatient (REF) | payer OTHER, SELFPAY ==
[2025-04-13 10:15] LABS: MANUAL DIFF FLAG NO
[2025-04-13 11:16] LABS: Hematocrit 44.6 % (42.0-52.0); Hemoglobin 14.7 g/dl (14.0-18.0); Imm Gran Abs Auto 0.05 X10*3/uL (0.00-0.03); Imm Gran Pct Auto 0.6 % (0.0-0.4); Lymphocytes Absolute Auto 1.8 X10*3/uL (1.2-4.9); Mean Corpuscular HGB Conc 33.0 g/dl (31.0-36.0); Mean Corpuscular Hemoglobin 30.8 pg (27.0-33.0); Mean Corpuscular Volume 93.3 fL (80.0-98.0); NRBC Abs Auto 0.000 X10*3/uL (0.0-0.012); NRBC Pct Auto 0.0 /100WBC (0.0-0.2); Platelet Count 251 X10*3/uL (160-400); Red Blood Count 4.78 X10*6/uL (4.60-5.80); White Blood Count 8.4 X10*3/uL (4.8-10.8)
[2025-04-13 12:07] LABS: Alanine Aminotransferase 40 U/L (0-40); Albumin Level 4.1 g/dL (3.5-5.0); Alkaline Phosphatase 75 U/L (39-117); Anion Gap 11 (12-20); Aspartate Amino Transferase 33 U/L (5-37); Blood Urea Nitrogen 18 mg/dL (9-16); Calcium 9.3 mg/dL (8.4-10.2); Carbon Dioxide 26 mmol/L (22-29); Chloride 102 mmol/L (96-108); Cholesterol 169 mg/dL (<200); Estimated Glomerular Filt Rate > 60; HDL Cholesterol 34 mg/dL (>40); Iron 107 mcg/dL (45-160); Percent Iron Saturation 35 % (15-50); Potassium 3.6 mmol/L (3.3-5.1); Sodium 135 mmol/L (135-145); Total Iron Binding Capacity 308 mcg/dL (228-428); Total Protein 7.8 g/dL (6.5-8.0); Triglycerides 148 mg/dL (<150); Unsaturated Iron Binding 201 ug/dL
[2025-04-13 12:26] LABS: Ferritin 96 ng/mL (20-250)
[2025-04-13 12:29] LABS: Folate 3.3 ng/mL (> or = 4.0); Vitamin B12 489 pg/mL (200-900)
== END 2025-04-13 09:50 | disposition home or self-care (01) ==
LOC: HO.LAB 09:49
PROVIDERS: PCP Nurse Practitioner Family; Visit Provider Surgery
DX: I10 Essential (primary) hypertension (principal); E11.9 Type 2 diabetes mellitus without complications; E66.01 Morbid (severe) obesity due to excess calories; I27.20 Pulmonary hypertension, unspecified
CPT/HCPCS: 36415; 80053; 80061; 82306; 82607; 82728; 82746; 83036; 83525; 83540; 84425; 84443; 84590; 84630; 85025; 86140